=== PATIENT | female | born 1960 | race Native Hawaiian/Other Pacific Islander ===

== ENCOUNTER 2016-09-03 10:43 | Outpatient (CLI) | payer OTHER ==
[2016-09-03 12:30] LABS: BASOPHILS # (AUTO) 0.1 10^3/uL (0.0-0.1); BASOPHILS % (AUTO) 1.2 %; EOSINOPHILS # (AUTO) 0.2 10^3/uL (0.0-0.7); EOSINOPHILS % (AUTO) 4.2 %; HCT - HEMATOCRIT 44.3 % (37.0-47.0); HGB - HEMOGLOBIN 14.8 g/dL (12.0-16.0); LYMPHOCYTES # (AUTO) 1.8 10^3/uL (1.5-3.5); LYMPHOCYTES % (AUTO) 34.3 %; MEAN CORPUSCULAR HEMOGLOBIN 31.5 pg (27.0-31.0); MEAN CORPUSCULAR HGB CONC 33.5 g/dL (32.0-36.0); MEAN CORPUSCULAR VOLUME 93.9 fL (81.0-99.0); MONOCYTES # (AUTO) 0.4 10^3/uL (0.0-1.0); MONOCYTES % (AUTO) 7.4 %; NEUTROPHILS # (AUTO) 2.8 10^3/uL (1.5-6.6); NEUTROPHILS % (AUTO) 52.9 %; NUCLEATED RED BLOOD CELLS AUTO 0.1 /100WBC; RED BLOOD COUNT 4.71 10^6/uL (4.20-5.40); RED CELL DISTRIBUTION WIDTH 13.7 % (12.0-15.0); UNCORRECTED WHITE BLOOD COUNT 5.3 x10^3/uL; WHITE BLOOD COUNT 5.3 x10^3/uL (4.8-10.8)
[2016-09-03 12:48] LABS: ALBUMIN/GLOBULIN RATIO 1.6 (1.0-2.2); BILIRUBIN,TOTAL 0.6 mg/dL (0.2-1.0); BUN - BLOOD UREA NITROGEN 10 mg/dL (6-20); CARBON DIOXIDE - CO2 26 mmol/L (21-32); CHLORIDE 103 mmol/L (101-111); CHOL/HDL RATIO 3.8 (<4.4); CHOLESTEROL 182 mg/dL; CREATININE 0.9 mg/dL (0.4-1.0); GFR - MDRD 65 (>89); GLUCOSE 84 mg/dL (70-100); HDL CHOLESTEROL 48 mg/dL; LDL/HDL RATIO 2.1 (<4.4); SODIUM 138 mmol/L (135-145); TOTAL PROTEIN 7.3 g/dL (6.7-8.2); TRIGLYCERIDES 162 mg/dL; VLDL CHOLESTEROL 32 mg/dL
== END 2016-09-03 10:44 | disposition home or self-care (01) ==
LOC: LAB.R 10:43
PROVIDERS: ATTEND Nurse Practitioner Primary Care
DX: E78.2 Mixed hyperlipidemia (principal); E03.9 Hypothyroidism, unspecified; I10 Essential (primary) hypertension
CPT/HCPCS: 80053; 80061; 84443; 85025

== ENCOUNTER 2016-09-05 14:57 | Outpatient (CLI) | payer OTHER ==
--- NOTE | 2016-09-05 17:00 | XRAY Report ---
TWO VIEW CHEST: 09/05/2016 CLINICAL INDICATION: Rales right middle lobe, cough, malaise. FINDINGS: Frontal and lateral views of the chest demonstrate a normal cardiac silhouette. The lungs are clear. No effusion or pneumothorax is present. IMPRESSION: NORMAL CHEST. JOB #: [id number] EXT JOB #:[id number]
== END 2016-09-05 14:58 | disposition home or self-care (01) ==
LOC: DI 14:57
PROVIDERS: ATTEND Nurse Practitioner Primary Care
DX: R09.89 Other specified symptoms and signs involving the circulatory and respiratory systems (principal)
CPT/HCPCS: 71020

== ENCOUNTER 2016-09-26 12:43 | Outpatient (CLI) | payer OTHER ==
--- NOTE | 2016-10-08 09:26 | Mammography Report ---
DIGITAL BILATERAL SCREENING MAMMOGRAM: 09/26/2016 CLINICAL HISTORY: A 56-year-old female in for routine screening mammogram. The patient has a family h istory of breast cancer. Her maternal aunt had breast cancer in her 60s. The patient had a benign lef t breast biopsy in 2009. COMPARISON: 12/22/2013. Only a single oblique lateral view of the right breast is available from 2012 . We will contact the patient and find out if there are any additional examinations for comparison. I f they are received, an addendum will be dictated on to the present study. TECHNIQUE: Craniocaudad and oblique lateral views of each breast were obtained with Par8o full fiel d digital mammography. FINDINGS: The breast parenchyma consists almost entirely of fat. A small surgical clip is seen in the 3 o'clock position of the left breast related to an old minimall y invasive benign breast biopsy. No significant clusters of calcification are seen. No masses are noted. IMPRESSION: THE BREASTS APPEAR RADIOGRAPHICALLY BENIGN. BIRADS CATEGORY 1-NEGATIVE. RECOMMENDATION: ANNUAL BILATERAL SCREENING MAMMOGRAPHY. STANDARD QUALIFYING STATEMENTS 1. This examination was reviewed with the aid of Computer-Aided Detection (CAD). 2. A negative or benign imaging report should not delay biopsy if clinically suspicious findings are present. Consider surgical consultation if warranted. More than 5% of cancers are not identified by i chantelle. 3. Dense breasts may obscure an underlying neoplasm. JOB #: [id number] EXT JOB #:[id number]
== END 2016-09-26 12:44 | disposition home or self-care (01) ==
LOC: DI 12:43
PROVIDERS: ATTEND Nurse Practitioner Primary Care
DX: Z12.31 Encounter for screening mammogram for malignant neoplasm of breast (principal); Z80.3 Family history of malignant neoplasm of breast
CPT/HCPCS: 77067

== ENCOUNTER 2016-11-20 10:25 | Outpatient (CLI) | payer OTHER | END 2016-11-20 10:26 | disposition home or self-care (01) | LOC: LAB.R 10:25 | PROVIDERS: ATTEND Nurse Practitioner Primary Care | DX: E03.9 Hypothyroidism, unspecified (principal) | CPT/HCPCS: 84443 ==

== ENCOUNTER 2017-02-12 10:49 | Outpatient (CLI) | payer OTHER | END 2017-02-12 10:50 | disposition home or self-care (01) | LOC: LAB.R 10:49 | PROVIDERS: ATTEND Nurse Practitioner Primary Care | DX: E03.9 Hypothyroidism, unspecified (principal); Z79.899 Other long term (current) drug therapy | CPT/HCPCS: 84443 ==

== ENCOUNTER 2017-04-11 10:12 | Day surgery (SDC) | payer OTHER ==
[2017-04-11] MEDS ORDERED: LACTATED RINGERS 1,000 ML IV ONE (11:27)
--- NOTE | 2017-04-11 11:38 | HISTORY & PHYSICAL EXAMINATION ---
HPI - History of Present Illness HPI Comment/Other: Patient is here for colonoscopy for routine screening Current Meds: [facility] MELATONIN 5 MG ORAL TABLET (MELATONIN) ALEVE 220 MG ORAL CAPSULE (NAPROXEN SODIUM) MAXALT 10 MG ORAL TABLET (RIZATRIPTAN BENZOATE) Take one tablet by mouth at onset of headache, may repeat every 2 hours, maximum dosage 3 tabs/30mg in 24 hours LISINOPRIL 20 MG ORAL TABLET (LISINOPRIL) Take one tablet by mouth daily CITALOPRAM HYDROBROMIDE 40 MG ORAL TABLET (CITALOPRAM HYDROBROMIDE) Take one tablet by mouth daily LEVOTHYROXINE SODIUM 125 MCG ORAL TABLET (LEVOTHYROXINE SODIUM) Take one tablet by mouth daily CLONIDINE HCL 0.1 MG ORAL TABLET (CLONIDINE HCL) Take one tablet by mouth bedtime PRAVACHOL 20 MG ORAL TABLET (PRAVASTATIN SODIUM) Take one tablet by mouth at bedtime Past Medical History: Reviewed history and no changes required: Heart Murmur High Blood Pressure High Cholestrol Anemia Thyroid Problems Family History Summary: Reviewed history and no changes required: 02/27/2017 Social History: Reviewed history and no changes required: Risk Factors: Smoked Tobacco Use: Never smoker Drug use: no Alcohol use: yes Drinks per day: <1 Exercise: no Problems were reviewed with the patient during this visit. Medications were reviewed with the patient during this visit. Allergies were reviewed with the patient during this visit. No known allergies. Physical Exam General: well developed, well nourished, in no acute distress Lungs: clear bilaterally to A & P Heart: regular rate and rhythm, S1, S2 without murmurs, rubs, gallops, or clicks Abdomen: bowel sounds positive; abdomen soft and non-tender without masses, organomegaly, or hernias noted Pulses: pulses normal in all 4 extremities Extremities: no clubbing, cyanosis, edema, or deformity noted with normal full range of motion of all joints Cervical Nodes: no significant adenopathy Psych: alert and cooperative; normal mood and affect; normal attention span and concentration Impression & Recommendations: Problem # 1: screening for colon cancer will proceed with colonoscopy PMH/PSH - Past Medical History Cardiovascular: positive: Hypertension, High cholesterol, Murmur Respiratory: positive: Pneumonia Endocrine/Autoimmune: positive: HyPOthyroidism GI: positive: GERD : positive: None HEENT: positive: Chronic vision loss Psych: positive: None Musculoskeletal: positive: Osteoarthritis Derm: positive: None MRSA Hx?: No Meds/Allgy - Home Medications Home Medications: Ambulatory Orders Medication Instructions Recorded Confirmed Citalopram [CeleXA] 10 mg PO ONCE 04/10/17 04/11/17 Levothyroxine [Synthroid] 112 mcg PO QDAC 04/10/17 04/11/17 Lisinopril [Zestril] 20 mg PO DAILY 04/10/17 04/10/17 Pravastatin Sodium 20 mg PO DAILY 04/10/17 04/11/17 cloNIDine [Catapres] 0.1 mg PO ONCE 04/10/17 04/10/17 - Allergies Allergies/Adverse Reactions: Allergies Allergy/AdvReac Type Severity Reaction Status Date / Time No Known Drug Allergies Allergy Verified 04/10/17 13:55 Exam - Vital Signs Vital Signs: Vital Signs x48h Temp Pulse Resp BP Pulse Ox 04/11/17 10:28 36.2 C L 72 16 126/83 H 100
[2017-04-11] MEDS ORDERED: fentaNYL 100 MCG/2 ML VIAL IVP ONE (12:02)
[2017-04-11] MEDS ORDERED: MIDAZOLAM 2 MG/2 ML VIAL IVP ONE (12:02)
[2017-04-11 13:07] VITALS: BP 112/84
== END 2017-04-11 10:13 | disposition home or self-care (01) ==
LOC: SDS 10:12
PROVIDERS: ATTEND Surgery
PROC: 0DJD8ZZ Inspection of Lower Intestinal Tract, Via Natural or Artificial Opening Endoscopic (ICD-10-PCS; principal; 2017-04-11 12:00)
DX: Z12.11 Encounter for screening for malignant neoplasm of colon (principal); K57.30 Diverticulosis of large intestine without perforation or abscess without bleeding; I10 Essential (primary) hypertension; E78.5 Hyperlipidemia, unspecified; E03.9 Hypothyroidism, unspecified
CPT/HCPCS: 45378; J7120

== ENCOUNTER 2017-09-10 08:32 | Outpatient (CLI) | payer OTHER ==
[2017-09-10 09:17] LABS: EOSINOPHILS # (AUTO) 0.1 10^3/uL (0.0-0.7); EOSINOPHILS % (AUTO) 2.6 %; HGB - HEMOGLOBIN 13.8 g/dL (12.0-16.0); LYMPHOCYTES # (AUTO) 1.2 10^3/uL (1.5-3.5); LYMPHOCYTES % (AUTO) 28.2 %; MEAN CORPUSCULAR HEMOGLOBIN 31.5 pg (27.0-31.0); MEAN CORPUSCULAR HGB CONC 33.3 g/dL (32.0-36.0); MEAN CORPUSCULAR VOLUME 94.6 fL (81.0-99.0); MEAN PLATELET VOLUME 9.5 fL (7.9-10.8); MONOCYTES # (AUTO) 0.4 10^3/uL (0.0-1.0); MONOCYTES % (AUTO) 9.4 %; NEUTROPHILS # (AUTO) 2.6 10^3/uL (1.5-6.6); NEUTROPHILS % (AUTO) 58.8 %; PLT - PLATELET COUNT 230 10^3/uL (130-450); RED CELL DISTRIBUTION WIDTH 12.7 % (12.0-15.0); WHITE BLOOD COUNT 4.4 x10^3/uL (4.8-10.8)
[2017-09-10 09:31] LABS: HB2 TOTAL 15.3 g/dL; HEMOGLOBIN A1C 0.47 g/dL
[2017-09-10 09:36] LABS: ALBUMIN 4.3 g/dL (3.2-5.5); ALBUMIN/GLOBULIN RATIO 1.4 (1.0-2.2); ALKALINE PHOSPHATASE 56 IU/L (42-121); ALT ALANINE AMINOTRANSFERASE 19 IU/L (10-60); AST ASPARTATE AMINOTRANSFERASE 18 IU/L (10-42); BILIRUBIN,TOTAL 0.9 mg/dL (0.2-1.0); BUN - BLOOD UREA NITROGEN 10 mg/dL (6-20); CALCIUM 9.2 mg/dL (8.5-10.3); CARBON DIOXIDE - CO2 25 mmol/L (21-32); CHLORIDE 104 mmol/L (101-111); CHOL/HDL RATIO 2.8 (<4.4); CHOLESTEROL 139 mg/dL; CREATININE 0.8 mg/dL (0.4-1.0); GFR - MDRD 74 (>89); GLUCOSE 92 mg/dL (70-100); HDL CHOLESTEROL 49 mg/dL; LDL CHOLESTEROL,CALCULATED 74 mg/dL; LDL/HDL RATIO 1.5 (<4.4); SODIUM 135 mmol/L (135-145); TOTAL PROTEIN 7.3 g/dL (6.7-8.2); VLDL CHOLESTEROL 16 mg/dL
[2017-09-11 13:30] LABS: HEPATITIS C ANTIBODY NON-REACTIVE (NON-REACTIVE)
== END 2017-09-10 08:33 | disposition home or self-care (01) ==
LOC: LAB 08:32
PROVIDERS: ATTEND Nurse Practitioner Primary Care
DX: E10.9 Type 1 diabetes mellitus without complications (principal); I10 Essential (primary) hypertension; E03.9 Hypothyroidism, unspecified; Z79.899 Other long term (current) drug therapy; Z13.818 Encounter for screening for other digestive system disorders
CPT/HCPCS: 36415; 80053; 80061; 83036; 83721; 84443; 85025; 86803

== ENCOUNTER 2017-09-20 12:58 | Outpatient (CLI) | payer OTHER ==
--- NOTE | 2017-09-23 08:11 | DEXA Report ---
Procedure Date: 09/20/2017 Accession Number: [id number] / [id number] Procedure: DEX - Dexa Spine and/or Hip CPT Code: FULL RESULT: EXAM: Dexa Spine and/or Hip DATE: 09/20/2017 1:43 PM CLINICAL HISTORY: DCREENING FOR OSTEOPOROSIS TECHNIQUE: Dual energy x-ray absorptiometry (DXA) was performed on a Silk System. Regions measured are the AP Spine, femoral neck, and if needed forearm. COMPARISON: None. In accordance with the International Society for Clinical Densitometry (ISCD) guidelines, data from previous exams may be reanalyzed using current recommendations and techniques. This is done to allow a more accurate basis for comparison with the current study. FINDINGS: The data for the lumbar spine is as follows: BMD (g/cm/cm) T-SCORE Z-SCORE REGION L1 1.043 -0.7 0.5 L2 1.178 -0.2 1.1 L3 1.211 0.1 1.4 L4 1.070 -1.1 0.2 TOTAL 1.121 -0.5 0.8 NOTE: All evaluable vertebrae are used for classification The data for the hip is as follows: BMD (g/cm/cm) T-SCORE Z-SCORE REGION Neck 0.771 -1.9 -0.6 TOTAL 0.794 -1.7 -0.7 NOTE: The femoral neck or total proximal femur, whichever is lowest, is used for classification. IMPRESSION: THE WHO CLASSIFICATION BASED ON THE INTERNATIONAL REFERENCE STANDARD IS OSTEOPENIA. THE FRACTURE RISK IS INCREASED. RECOMMENDATION: Patients with diagnosis of osteoporosis or osteopenia should have regular bone mineral density assessment. For those eligible for Medicare, routine testing is allowed once every 2 years. Testing frequency can be increased for patients who have rapidly progressing disease or for those who are receiving medical therapy to restore bone mass. COMMENT: World Health Organization (WHO) definitions for osteoporosis and osteopenia: NORMAL BMD: T-score at -1.0 or higher, fracture risk is low OSTEOPENIA BMD: T-score between -1.0 and -2.5, fracture risk is increased. OSTEOPOROSIS BMD: T-score at -2.5 or lower, fracture risk is high. National Osteoporosis Foundation recommends: 1. Obtain adequate dietary calcium (at least 1200 mg per day) and vitamin D (400-800 international units per day). 2. Participate, as appropriate, in regular weightbearing and muscle-strengthening exercise. 3. Avoid tobacco use and reduce alcohol and caffeine intake. 4. For more detailed information see the website at www.NOF.org.
== END 2017-09-20 12:59 | disposition home or self-care (01) ==
LOC: DI 12:58
PROVIDERS: ATTEND Nurse Practitioner Primary Care
DX: Z13.820 Encounter for screening for osteoporosis (principal); M85.88 Other specified disorders of bone density and structure, other site; Z78.0 Asymptomatic menopausal state
CPT/HCPCS: 77080

== ENCOUNTER 2017-09-27 12:13 | Outpatient (CLI) | payer OTHER ==
--- NOTE | 2017-09-27 12:56 | XRAY Report ---
Procedure Date: 09/27/2017 Accession Number: [id number] / [id number] Procedure: XR - Knee Standing BILAT CPT Code: FULL RESULT: EXAM: Knee Standing BILAT DATE: 09/27/2017 12:48 PM CLINICAL HISTORY: BONE DEFORMITY,COMMON PERONEAL NERVE COMPRESSION,R COMPARISON: None. TECHNIQUE: 2 views each. FINDINGS: RIGHT KNEE: Bones: Normal. No fractures or bone lesions. Joints: Normal. No effusion. No subluxations. Soft Tissues: Normal. No soft tissue swelling. LEFT KNEE: Bones: Normal. No fractures or bone lesions. Joints: Normal. No effusion. No subluxations. Soft Tissues: Normal. No soft tissue swelling. IMPRESSION: Normal bilateral knee radiography. RAD[facility]
== END 2017-09-27 12:14 | disposition home or self-care (01) ==
LOC: DI 12:13
PROVIDERS: ATTEND Nurse Practitioner Primary Care
DX: M95.9 Acquired deformity of musculoskeletal system, unspecified (principal); G57.31 Lesion of lateral popliteal nerve, right lower limb
CPT/HCPCS: 73565

== ENCOUNTER 2017-12-04 12:12 | Outpatient (CLI) | payer OTHER | END 2017-12-04 12:13 | disposition home or self-care (01) | LOC: LAB 12:12 | PROVIDERS: ATTEND Nurse Practitioner Primary Care | DX: Z79.899 Other long term (current) drug therapy (principal); E03.9 Hypothyroidism, unspecified | CPT/HCPCS: 36415; 84443 ==

== ENCOUNTER 2018-02-11 15:24 | Outpatient (CLI) | payer OTHER | END 2018-02-11 15:25 | disposition home or self-care (01) | LOC: LAB 15:24 | PROVIDERS: ATTEND Nurse Practitioner Primary Care | DX: Z79.899 Other long term (current) drug therapy (principal); E03.9 Hypothyroidism, unspecified | CPT/HCPCS: 36415; 84443 ==

== ENCOUNTER 2018-10-20 15:04 | Outpatient (CLI) | payer OTHER | END 2018-10-20 15:05 | disposition critical access hospital (66) | LOC: EMS 15:04 | PROVIDERS: ATTEND Surgery | DX: R42 Dizziness and giddiness (principal); R61 Generalized hyperhidrosis; R53.1 Weakness; R53.83 Other fatigue | CPT/HCPCS: A0425; A0427 ==

== ENCOUNTER 2018-10-20 15:17 | Inpatient (IN) | payer OTHER ==
[2018-10-20] MEDS ORDERED: SODIUM CHLORIDE 0.9% 1,000 ML IV ONE (15:25)
--- NOTE | 2018-10-20 15:28 | ED Physician Documentation ---
PD HPI SYNCOPE - Stated complaint Stated Complaint: WEAKNESS - History obtained from History obtained from: Patient, Family, EMS - History of Present Illness Timing - onset: Today (58-year-old woman with history of hypertension and chronic migraines presents with a syncopal episode today. She is been constipated for the last few days but that is kind of a intermittent recurrent problem for her. She was sitting on the toilet and passed out or nearly passed out without injury. EMS was summoned and found her to have a blood pressure of 60/30 or so with a blood sugar of 140. On arrival she is more alert with better color. Still quite sweaty. On arrival she has received about 500 mL of normal saline IV. She denies pedal edema or calf pain. No heart or lung problems. Her says she did this once before but did not seek medical attention. Only new medication is Topamax which she started about a month ago at a low dose for migraine prophylaxis.) Review of Systems Ten Systems: 10 systems reviewed and negative Constitutional: reports: Fatigue, Sweats. denies: Fever, Chills Cardiac: denies: Chest pain / pressure, Palpitations Respiratory: reports: Dyspnea. denies: Cough GI: reports: Constipation. denies: Abdominal Pain, Nausea, Vomiting, Diarrhea, Hematemesis, Bloody / black stool PD PAST MEDICAL HISTORY - Past Medical History Cardiovascular: Hypertension, High cholesterol, Murmur Respiratory: Pneumonia Endocrine/Autoimmune: HyPOthyroidism GI: GERD : None HEENT: Chronic vision loss Psych: None Musculoskeletal: Osteoarthritis Derm: None - Present Medications Home Medications: Ambulatory Orders Medication Instructions Recorded Confirmed Citalopram [CeleXA] 10 mg PO ONCE 04/10/17 10/20/18 Levothyroxine [Synthroid] 112 mcg PO QDAC 04/10/17 10/20/18 Lisinopril [Zestril] 20 mg PO DAILY 04/10/17 10/20/18 Pravastatin Sodium 20 mg PO DAILY 04/10/17 10/20/18 cloNIDine [Catapres] 0.1 mg PO ONCE 04/10/17 10/20/18 Topiramate 25 mg PO DAILY 10/20/18 10/20/18 - Allergies Allergies/Adverse Reactions: Allergies Allergy/AdvReac Type Severity Reaction Status Date / Time No Known Drug Allergies Allergy Verified 04/10/17 13:55 PD ED PE NORMAL - Vitals Vital signs reviewed: Yes - General General: Alert and oriented X 3 (Slightly slow to answer questions, diaphoretic) - HEENT HEENT: PERRL, EOMI - Neck Neck: Supple, no meningeal sign, No bony TTP - Cardiac Cardiac: RRR, No murmur - Respiratory Respiratory: No respiratory distress, Clear bilaterally - Abdomen Abdomen: Normal bowel sounds, Soft, Non tender - Back Back: No CVA TTP, No spinal TTP - Derm Derm: Other (sweaty) - Extremities Extremities: No edema, No calf tenderness / cord - Neuro Neuro: Alert and oriented X 3, Normal speech - Psych Psych: Normal mood, Normal affect Results - Vitals Vitals: Vital Signs - 24 hr 10/20/18 10/20/18 10/20/18 15:23 15:30 17:03 Temperature 34.6 C L 35.3 C L Heart Rate 73 68 87 Respiratory 16 18 12 Rate Blood Pressure 78/64 L 91/70 89/66 L O2 Saturation 98 99 98 Oxygen O2 Source Room air - EKG (time done) 1527 Rate: Rate (enter#) (74) Rhythm: NSR [place]: Normal Intervals: Normal IA QRS: Normal Ischemia: Normal ST segments Computer interpretation: Agree with computer - Labs Labs: Laboratory Tests 10/20/18 10/20/18 10/20/18 15:51 15:51 15:51 WBC 16.5 H RBC 4.92 Hgb 11.9 L Hct 39.6 MCV 80.5 L MCH 24.2 L MCHC 30.1 L RDW 20.3 H Plt Count 405 MPV 10.2 Neut # (Auto) 13.3 H Lymph # (Auto) 2.1 [place] # (Auto) 0.7 Eos # (Auto) 0.2 Baso # (Auto) 0.1 Absolute Nucleated RBC 0.00 Nucleated RBC % 0.0 Manual Slide Review Indicated Platelet Estimate NORMAL (130-450,000) Platelet Morphology NORMAL APPEARANCE RBC Morph Micro Appear 2+ POIKILOCYTOSIS Sodium 136 Potassium 3.9 Chloride 111 Carbon Dioxide 16 L Anion Gap 9.0 BUN 17 Creatinine 1.4 H Estimated GFR (MDRD) 38 L Glucose 110 H Lactic Acid 1.2 Calcium 8.2 L Total Bilirubin 0.4 AST 16 ALT 16 Alkaline Phosphatase 40 L Total Protein 6.5 L Albumin 3.7 Globulin 2.8 Albumin/Globulin Ratio 1.3 Lipase 41 TSH Free T4 Thyroxine (T4) Urine Color Urine Clarity Urine pH Ur Specific [place] Urine Protein Urine Glucose (UA) Urine Ketones Urine Occult Blood Urine Nitrite Urine Bilirubin Urine Urobilinogen Ur Leukocyte Esterase Urine RBC Urine WBC Ur Squamous Epith Cells Urine Bacteria Urine Casts Ur Microscopic Review Urine Culture Comments Urine Opiates Screen Ur Oxycodone Screen Urine Methadone Screen Ur Propoxyphene Screen Ur Barbiturates Screen Ur Tricyclics Screen Ur Phencyclidine Scrn Ur Amphetamine Screen U Methamphetamines Scrn U Benzodiazepines Scrn Urine Cocaine Screen U Cannabinoids Screen Ethyl Alcohol 5.0 10/20/18 10/20/18 15:51 16:00 WBC RBC Hgb Hct MCV MCH MCHC RDW Plt Count MPV Neut # (Auto) Lymph # (Auto) [place] # (Auto) Eos # (Auto) Baso # (Auto) Absolute Nucleated RBC Nucleated RBC % Manual Slide Review Platelet Estimate Platelet Morphology RBC Morph Micro Appear Sodium Potassium Chloride Carbon Dioxide Anion Gap BUN Creatinine Estimated GFR (MDRD) Glucose Lactic Acid Calcium Total Bilirubin AST ALT Alkaline Phosphatase Total Protein Albumin Globulin Albumin/Globulin Ratio Lipase TSH 35.79 H Free T4 0.93 Thyroxine (T4) 5.74 L Urine Color DARK YELLOW Urine Clarity CLOUDY Urine pH 5.0 Ur Specific [place] 1.025 Urine Protein 100 H Urine Glucose (UA) 100 H Urine Ketones 15 H Urine Occult Blood NEGATIVE Urine Nitrite POSITIVE H Urine Bilirubin NEGATIVE Urine Urobilinogen 1 (NORMAL) Ur Leukocyte Esterase TRACE H Urine RBC None Seen Urine WBC 6-10 H Ur Squamous Epith Cells FEW Squamous Urine Bacteria Moderate H Urine Casts 11-25 Hyaline Casts Ur Microscopic Review INDICATED Urine Culture Comments INDICATED Urine Opiates Screen NEGATIVE Ur Oxycodone Screen NEGATIVE Urine Methadone Screen NEGATIVE Ur Propoxyphene Screen NEGATIVE Ur Barbiturates Screen NEGATIVE Ur Tricyclics Screen POSITIVE H Ur Phencyclidine Scrn POSITIVE H Ur Amphetamine Screen NEGATIVE U Methamphetamines Scrn NEGATIVE U Benzodiazepines Scrn POSITIVE H Urine Cocaine Screen NEGATIVE U Cannabinoids Screen POSITIVE H Ethyl Alcohol - Rads (name of study) CT Angio chest Radiology: EMP read contemporaneously (negative) PD MEDICAL DECISION MAKING - ED course ED course: 58-year-old woman presents after syncopal episode at home, persistently hypotensive here. Found to have UTI with probable sepsis, white count of 16 but lactate reassuring. Her blood pressure did improve with the administration of IV fluids. She would not is administered Zosyn here. Of note she also had dyspnea, so a CTA was done to make sure there was no evidence of a pulmonary embolism, there was not. - Consults Consults: Request knowledge management consultant accept pt in transfer (Anthony Garcia, [id number]) - Critical Care Time(min): 40 Time Includes: Direct patient care, Review records, Reassess patient, Document care, Coordinate care, Medical consult, Family consult for tx dec Data interpretation: Labs, Pulse ox Procedures included in critical care time: Peripheral IV Procedures excluded from critical care time: EKG - Sepsis Event Current Stage of Sepsis: Severe sepsis Initial Hypotension: SBP less than 90 mmHg Possible source of Sepsis: Genitourinary Mental/Cognitive Status: Alert/Oriented X3, Normal for patient Capillary refill: Less than 2 seconds Peripheral Pulse Strength: 2+ Slightly Diminished Peripheral Pulse Location: Popliteal Bedside ultrasound performed: No Departure - Departure Disposition: 66 [facility] DC/Xfer Clinical Impression: UTI (urinary tract infection) Qualifiers: Urinary tract infection type: site unspecified Hematuria presence: without hematuria Qualified Code(s): N39.0 - Urinary tract infection, site not specified Sepsis Qualifiers: Sepsis type: sepsis due to unspecified organism Qualified Code(s): A41.9 - Sepsis, unspecified organism Dyspnea Qualifiers: Dyspnea type: shortness of breath Qualified Code(s): R06.02 - Shortness of breath Condition: Serious
[2018-10-20 16:01] LABS: BASOPHILS # (AUTO) 0.1 10^3/uL (0.0-0.1); BASOPHILS % (AUTO) 0.5 %; EOSINOPHILS # (AUTO) 0.2 10^3/uL (0.0-0.7); EOSINOPHILS % (AUTO) 1.2 %; HGB - HEMOGLOBIN 11.9 g/dL (12.0-16.0); LYMPHOCYTES # (AUTO) 2.1 10^3/uL (1.5-3.5); LYMPHOCYTES % (AUTO) 12.7 %; MEAN CORPUSCULAR HEMOGLOBIN 24.2 pg (27.0-31.0); MEAN CORPUSCULAR HGB CONC 30.1 g/dL (32.0-36.0); MEAN CORPUSCULAR VOLUME 80.5 fL (81.0-99.0); MEAN PLATELET VOLUME 10.2 fL (7.9-10.8); MONOCYTES # (AUTO) 0.7 10^3/uL (0.0-1.0); NEUTROPHILS # (AUTO) 13.3 10^3/uL (1.5-6.6); NEUTROPHILS % (AUTO) 80.9 %; PLT - PLATELET COUNT 405 10^3/uL (130-450); RED BLOOD COUNT 4.92 10^6/uL (4.20-5.40); RED CELL DISTRIBUTION WIDTH 20.3 % (12.0-15.0); WHITE BLOOD COUNT 16.5 x10^3/uL (4.8-10.8)
[2018-10-20 16:13] LABS: MUDS CUTOFF CONCENTRATIONS CUTOFF CONC BELOW:
[2018-10-20 16:14] LABS: ALBUMIN 3.7 g/dL (3.2-5.5); ALBUMIN/GLOBULIN RATIO 1.3 (1.0-2.2); BILIRUBIN,TOTAL 0.4 mg/dL (0.2-1.0); CALCIUM 8.2 mg/dL (8.5-10.3); CREATININE 1.4 mg/dL (0.4-1.0); TOTAL PROTEIN 6.5 g/dL (6.7-8.2)
[2018-10-20 16:16] LABS: GLUCOSE, URINE (UA) 100 mg/dL (NEGATIVE); KETONES,URINE (UA) 15 mg/dL (NEGATIVE); LEUKOCYTE ESTERASE, URINE TRACE (NEGATIVE); NITRITE,URINE POSITIVE (NEGATIVE); OCCULT BLOOD,URINE NEGATIVE (NEGATIVE); PROTEIN,URINE 100 mg/dL (NEGATIVE); UROBILINOGEN,URINE 1 (NORMAL) E.U./dL (NORMAL)
[2018-10-20] MEDS ORDERED: IOVERSOL 320 100 ML VIAL IVP ONE ×2 (16:16→17:03)
[2018-10-20 16:20] LABS: BILIRUBIN,URINE NEGATIVE (NEGATIVE); CLARITY,URINE CLOUDY (CLEAR); ICTOTEST,URINE NEGATIVE
[2018-10-20] MEDS ORDERED: PIPERACILLIN/TAZOBACTAM 3.375 GM in SODIUM CHLORIDE 0.9% MINIBAG 100 ML IV STA (16:25)
[2018-10-20] MEDS ORDERED: LACTATED RINGERS 1,769.01 ML IV STA (16:25)
[2018-10-20 16:35] LABS: T4 (THYROXINE) 5.74 ug/dL (6.09-12.23)
[2018-10-20 16:36] LABS: PLATELET ESTIMATE, MANUAL NORMAL (130-450,000) (NORMAL); PLATELET MORPHOLOGY NORMAL APPEARANCE (NORMAL)
[2018-10-20 16:37] LABS: COCAINE SCREEN URINE NEGATIVE (NEGATIVE)
[2018-10-20 16:38] LABS: AMPHETAMINE SCREEN,URINE NEGATIVE (NEGATIVE); BENZODIAZEPINES SCREEN, URINE POSITIVE (NEGATIVE); METHADONE SCREEN, URINE NEGATIVE (NEGATIVE); METHAMPHETAMINES SCREEN, URINE NEGATIVE (NEGATIVE); OPIATE SCREEN, URINE NEGATIVE (NEGATIVE); OXYCODONE SCREEN, URINE NEGATIVE (NEGATIVE); PROPOXYPHENE SCREEN, URINE NEGATIVE (NEGATIVE); TRICYCLIC ANTIDEPRESSANT,URINE POSITIVE (NEGATIVE)
[2018-10-20 16:38] LABS: THYROID STIMULATING HORMONE 35.79 uIU/mL (0.34-5.60)
[2018-10-20 16:41] LABS: BACTERIA,URINE Moderate /HPF (None Seen); CASTS, URINE 11-25 Hyaline Casts /LPF; RBC,URINE None Seen /HPF (0-5); SQUAMOUS EPITHELIAL CELL,UR FEW Squamous (<= Few)
[2018-10-20 16:41] LABS: FREE T4 (FREE THYROXINE) 0.93 ng/dL (0.58-1.64)
--- NOTE | 2018-10-20 17:35 | CT Report ---
Reason: hypotension, dyspnea, PE PROTOCOL Procedure Date: 10/20/2018 Accession Number: [id number] / [id number] Procedure: CT - ANGIO CHEST W/WO CPT Code: FULL RESULT: EXAM: CT ANGIOGRAM CHEST EXAM DATE: 10/20/2018 05:00 PM. CLINICAL HISTORY: Hypotension, dyspnea, PE PROTOCOL. COMPARISON: CHEST 2 VIEW PA/LAT 09/05/2016 3:14 PM. TECHNIQUE: Routine helical imaging was performed through the chest in the pulmonary arterial phase. IV Contrast: OPTI 320 80 mL. Reconstructions: Coronal 3-D MIP reconstructions.Sagittal and coronal. In accordance with CT protocol optimization, one or more of the following dose reduction techniques were utilized for this exam: automated exposure control, adjustment of mA and/or KV based on patient size, or use of iterative reconstructive technique. FINDINGS: Pulmonary Arteries: Diagnostic quality: Adequate through the segmental arteries. No evidence for acute pulmonary emboli. Lungs/Pleura: No consolidation, pleural effusion, or pneumothorax. Mediastinum: Heart size is normal. No pericardial effusion. No mediastinal lymphadenopathy. Thoracic Aorta: Normal in course and caliber. No evidence of aneurysm or dissection. Upper Abdomen: Unremarkable. Other: None. IMPRESSION: No evidence of acute pulmonary embolus. RAD[facility]
[2018-10-20] MEDS ORDERED: levoFLOXacin 500 MG/100 ML 500 MG/100 ML BAG IV ONE (17:46)
[2018-10-20] MEDS ORDERED: ONDANSETRON ODT 4 MG TABLET TL PRN (17:53)
[2018-10-20] MEDS ORDERED: ONDANSETRON 4 MG/2 ML VIAL IVP PRN (17:53)
[2018-10-20] MEDS ORDERED: cefTRIAXone 1 GM in SODIUM CHLORIDE 0.9% MINIBAG 100 ML IV STA (18:01)
[2018-10-20] MEDS: cefTRIAXone 1 GM in SODIUM CHLORIDE 0.9% MINIBAG 100 ML IV SCH (19:45)
--- NOTE | 2018-10-20 20:28 | HISTORY & PHYSICAL EXAMINATION ---
Chief Complaint - Chief Complaint Chief Complaint: Light headedness History of Present Illness - Admitted From Admitted From:: Home - History Obtained From Records Reviewed: Yes History obtained from: Patient, Family - History of Present Illness HPI Comment/Other: This is a 58 year old female with a past medical history significant for hypertension, hypothyroidism, and migraines who presents from home after her spouse found her on the floor in the bathroom. The patient reports she went to the bathroom to vomit this afternoon when she felt weak, dizzy, lightheaded, and diaphoretic. She decided to lay on the floor as it was cool and she felt warm. She denies passing out or syncope but reports that she felt like her vision was going dark. Her found her lying on the floor and called 911 as she was not feeling. He reports that this happened once a few years ago but that this seemed more severe. She did not require medical attention during the prior episode. The patient reports she had felt weaker over the last couple of days. Denies fevers, dysuria, urgency. Reports increased urinary frequency but that she had been drinking more water than usual up until a couple of days ago. She denies palpitations, chest pain, syncope prior this episode of feeling faint. Upon EMS arrival, she was found to be hypothermic with a temperature <35, hypotensive with systolics in the 70's with a blood glucose in the 140's. In the ER, she was administered IV fluids and underwent a CTA to rule out pulmonary embolism which was unremarkable. Her labs were significant for a leukocytosis and elevated creatinine. UA positive for pyuria with bacteria and positive nitrites. She was administered Levaquin and Medicine was consulted for admission. History - Past Medical History Cardiovascular: reports: Hypertension, High cholesterol, Murmur Respiratory: reports: Pneumonia Neuro: reports: None Endocrine/Autoimmune: reports: HyPOthyroidism GI: reports: GERD, Hemorrhoids INDEPENDENT CROP CONSULTANT: reports: None : reports: None HEENT: reports: Chronic vision loss Psych: reports: None Musculoskeletal: reports: Osteoarthritis Derm: reports: None MRSA Hx?: No - Past Surgical History General: reports: Other (Hemmorhoid surgery x3) - Family & Social History Family History: Mother: , Father: Alive and Well Family History Comment/Other: She reports no family history. Father is alive and well. Mother in her 70's. Living arrangement: At home Living Situation: With spouse/s.o., With family Social History Notes: She has lived in [place] with her and father for past three years. Self-employed and works from as an retail sales advisor. Denies smoking, drug use. Consumes alcohol once every two weeks. - Substance History Use: Uses substance without health or social issues: NONE - POLST Patient has POLST: No Meds/Allgy - Home Medications Home Medications: Ambulatory Orders Medication Instructions Recorded Confirmed Citalopram [CeleXA] 10 mg PO ONCE 04/10/17 10/20/18 Levothyroxine [Synthroid] 112 mcg PO QDAC 04/10/17 10/20/18 Lisinopril [Zestril] 20 mg PO DAILY 04/10/17 10/20/18 Pravastatin Sodium 20 mg PO DAILY 04/10/17 10/20/18 cloNIDine [Catapres] 0.1 mg PO ONCE 04/10/17 10/20/18 Topiramate 25 mg PO DAILY 10/20/18 10/20/18 - Allergies Allergies/Adverse Reactions: Allergies Allergy/AdvReac Type Severity Reaction Status Date / Time No Known Drug Allergies Allergy Verified 04/10/17 13:55 Review of Systems - Constitutional Constitutional: reports: Fatigue, Malaise, Weakness, Diaphoresis. denies: Fever, Chills - Cardiovascular Cariovascular: reports: Lightheadedness. denies: Irregular heart rate, Palpitations, Chest pain, Edema, Syncope - Respiratory Respiratory: reports: Cough. denies: SOB at rest, SOB with exertion - Gastrointestinal Gastrointestinal: reports: Abdominal pain, Constipation, Diarrhea, Rectal bleeding (From hemorrhoids). denies: Black stools, Nausea, Vomiting - Genitourinary Genitourinary: denies: Dysuria, Frequency, Urgency - Integumentary Integumentary: reports: Rash - Neurological Neurological: reports: General weakness, Headache, Dizziness. denies: Focal weakness - Endocrine Endocrine: reports: Polyuria - All Other Systems All Other Systems: reports: Reviewed and negative Prior Level of Functionality: Independent with ADL's Exam - Vital Signs Reviewed Vital Signs: Yes Vital Signs: Vital Signs x48h Temp Pulse Pulse Pulse Resp BP BP 10/20/18 20:00 77 18 107/92 H 10/20/18 19:30 79 20 119/83 H 10/20/18 19:21 36.4 C L 71 17 111/79 10/20/18 18:15 35.5 C L 76 16 94/47 L 10/20/18 17:45 35.8 C L 77 18 111/80 10/20/18 17:03 35.3 C L 87 12 89/66 L 10/20/18 15:30 68 18 91/70 10/20/18 15:23 34.6 C L 73 16 78/64 L Pulse Ox 10/20/18 20:00 100 10/20/18 19:30 100 10/20/18 19:21 100 10/20/18 18:15 99 10/20/18 17:45 100 10/20/18 17:03 98 10/20/18 15:30 99 10/20/18 15:23 98 - Physical Exam General Appearance: positive: No acute distress, Alert Eyes Bilateral: positive: Normal inspection ENT: positive: ENT inspection nml. negative: Dry mucous membranes Neck: positive: Nml inspection Respiratory: positive: No respiratory distress, Breath sounds nml. negative: Wheezes, Rales, Rhonchi Cardiovascular: positive: Regular rate & rhythm, No murmur. negative: Tachycardia, Bradycardia Abdomen: positive: Nml bowel sounds, No distention, Tenderness (Mild tenderness to palpation). negative: Guarding, Rebound Skin: positive: Color nml, No rash, Warm, Dry Extremities: positive: Full ROM, No pedal edema. negative: Pedal edema Neurologic/Psychiatric: positive: Oriented x3, Motor nml. negative: Disoriented to person, Disoriented to place, Disoriented to time, Slurred/abnml speech Sepsis Event Note (H) - Evaluation Current Stage of Sepsis: Severe sepsis Possible source of Sepsis: positive: Genitourinary Sepsis Associated Organ Dysfunction: Acute kidney injury - Sepsis Criteria Sepsis Criteria: WBC count greater than 12,000 or less than 4000, SADDLE LINING STITCHER: altered consciousness (unrelated to primary neuro pathology), SBP less than 90 mmHg, Renal: urine output less than 0.5ml/kg/hr for 2 hours or creatinine gr Conclusion/Plan - Problem List (1) Severe sepsis with acute organ dysfunction Conclusion/Plan: She has severe sepsis which appears to be secondary to a UTI. Presented with hypotension, hypothermic, leukocytosis, presyncope, and acute kidney injury. UA reveals pyuria with bacteria and positive nitrites. CTA of the chest negative for infiltrate. Lactic acid normal. - Ceftriaxone to cover for gram negatives - LR for IV hydration - Follow up urine and blood cultures (2) UTI (urinary tract infection) Conclusion/Plan: Suspect that this is the cause of her sepsis as there is no other obvious source. UA with pyuria, bacteria and positive nitrites. - Ceftriaxone IV - Follow up urine culture Qualifiers: Urinary tract infection type: site unspecified Hematuria presence: without hematuria Qualified Code(s): N39.0 - Urinary tract infection, site not specified (3) Pre-syncope Conclusion/Plan: It does not appear that she truly had a syncopal episode as she can recall all of the events leading up to her lying on the floor. This appears to be more consistent with pre-syncope which I suspect is likely secondary to the hypotension rather than a cardiac event. Her EKG does reveal sinus rhythm with old Q waves in II, III, AVF. - IV hydration with LR - Trend troponins - If troponins are elevated, will check echocardiogram (4) Acute kidney injury Conclusion/Plan: She has non-oliguric acute kidney injury which I suspect is pre-renal in nature. Creatinine elevated at 1.4 with a baseline of 0.8. - IV hydration with LR - Hold Lisinopril - Monitor renal function and urine output (5) Hypertension Conclusion/Plan: She is on Lisinopril and takes Clonidine for hot flashes. Presented hypotensive with sytolics in the 70's which has improved with IV hydration. - Continue IV hydration - Hold home antihypertensives, restart when blood pressure stabilitizes (6) Hypothyroidism Conclusion/Plan: She is on Synthroid at home. TSH elevated at 35.79 with a normal T4. - Increase Synthroid to 125 from 112 - Repeat TSH in 6 weeks (7) Migraines Conclusion/Plan: Controlled with Topomax. - Resume Topomax - Lab Results Lab results reviewed: Yes Fish Bones: 10/20/18 15:51 10/20/18 15:51 - Diagnostic Imaging Results Diagnostic Imaging Results: positive: Final report reviewed - EKG Results EKG Interpreted Independently: Yes EKG Comparison: No prior EKG EKG Findings: Sinus rhythm with Q waves in II, II, and AVF. No ST segment changes. Core Measures - Anticipated LOS I expect patient to be DC'd or transferred within 96 hours.: Yes - Issues Hospital Issues and Management Plan: Sepsis with hypotension, TONO believed to be secondary to UTI. Requires IV Abx and fluids - DVT/VTE - Prophylaxis VTE/DVT Device ordered at admit?: Yes VTE/DVT Prophylaxis med ordered at admit?: Yes
[2018-10-20 21:53] LABS: TROPONIN I < 0.04 ng/mL (<0.49)
[2018-10-20] MEDS: LACTATED RINGERS 1,000 ML IV SCH (22:30)
[2018-10-21] MEDS: SODIUM CHLORIDE FLUSH 0.9% 10 ML SYRINGE IVP SCH ×3 (02:22→17:05)
[2018-10-21] MEDS: oxyCODONE 5 MG TABLET PO PRN (02:36)
[2018-10-21 04:57] LABS: BASOPHILS % (AUTO) 0.3 %; EOSINOPHILS # (AUTO) 0.1 10^3/uL (0.0-0.7); EOSINOPHILS % (AUTO) 0.5 %; HGB - HEMOGLOBIN 8.3 g/dL (12.0-16.0); LYMPHOCYTES # (AUTO) 1.9 10^3/uL (1.5-3.5); MEAN CORPUSCULAR HEMOGLOBIN 23.9 pg (27.0-31.0); MEAN CORPUSCULAR HGB CONC 30.2 g/dL (32.0-36.0); MEAN PLATELET VOLUME 10.1 fL (7.9-10.8); MONOCYTES # (AUTO) 0.7 10^3/uL (0.0-1.0); MONOCYTES % (AUTO) 6.4 %; NEUTROPHILS # (AUTO) 8.6 10^3/uL (1.5-6.6); NEUTROPHILS % (AUTO) 75.5 %; PLT - PLATELET COUNT 275 10^3/uL (130-450); RED BLOOD COUNT 3.48 10^6/uL (4.20-5.40); RED CELL DISTRIBUTION WIDTH 19.6 % (12.0-15.0); WHITE BLOOD COUNT 11.4 x10^3/uL (4.8-10.8)
[2018-10-21 05:13] LABS: CALCIUM 7.8 mg/dL (8.5-10.3); CREATININE 1.1 mg/dL (0.4-1.0); MAGNESIUM 2.1 mg/dL (1.7-2.8); PHOSPHORUS 2.6 mg/dL (2.5-4.6)
[2018-10-21] MEDS ORDERED: LEVOTHYROXINE 125 MCG TABLET PO SCH (07:00)
[2018-10-21 07:36] LABS: % IRON SATURATION 9 % (20-50); IRON 29 ug/dL (28-170); TOTAL IRON BINDING CAPACITY 308 ug/dL (250-450); TRANSFERRIN 220 mg/dL (192-382)
[2018-10-21] MEDS: LACTATED RINGERS 1,000 ML IV SCH ×2 (08:31→18:45)
[2018-10-21] MEDS: cefTRIAXone 1 GM in SODIUM CHLORIDE 0.9% MINIBAG 100 ML IV SCH (08:31)
--- NOTE | 2018-10-21 08:33 | PROVIDER PROGRESS NOTE ---
Assessment/Plan - Problem List (1) Severe sepsis with acute organ dysfunction Assessment/Plan: BP and mental status improved. The source appears to be her UTI. Will transfer out of ICU today. (2) UTI (urinary tract infection) Qualifiers: Urinary tract infection type: site unspecified Hematuria presence: without hematuria Qualified Code(s): N39.0 - Urinary tract infection, site not specified Assessment/Plan: She was given Levo in ER then started on iv Rocephin as an inpatient. Awaiting urine and blood culture results. Follow CBC daily. If no bacteremia, will plan 2 days of iv antibiotics, then transition to po antibiotics for 5 more days. (3) Pre-syncope Assessment/Plan: Low BP was documented at the scene which would explain her near-syncope. This may have been from sepsis, dehydration, alcohol use or iv drug use. (4) Positive urine drug screen Assessment/Plan: The Pharmacist was able to spend a long time with her and after a repeat visit, she did admit to the Phrmacist that she was on Alprazolam and also Flexeril. The Alpraz would explain a (+) Benzo fingding on drug screen, The Flexeril could make the drug screen (+) for PCP and Tricyclics (this was reviewed with our Pharmacist). There was also marijuana and alcohol seen. (5) Acute kidney injury Assessment/Plan: Improving BUN/creat with iv hydration. Monitor BMP daily. (6) Hypertension Assessment/Plan: Her BP meds will be restarted today, as BP has risen into HTN range. (7) Hypothyroidism Assessment/Plan: The lab findings show inadequate thyroid replacement. The admitting MD had incorrect information: he undrstood that she was on 112 mcg daily, but the Pharmacist confirmed the dose: 100 mcg 5 times a week. Will adjust the increase of dose to 112 mcg daily, not 125 mcg daily. (8) Migraines Assessment/Plan: She had a headache this a.m. an wanted her Topamax. Our Pharmacist was able to ascertain her correct current (higher) dose, which was ordered. The patient and confirmed to me that she was on an escalating dose over the past 6-8 weeks. (9) Diarrhea Assessment/Plan: She had this the morning of dmission (yesterday). No further complaints. (10) Iron deficiency anemia Assessment/Plan: She has early signs of low iron stores. Since she has needed crystalloids for replacement, her Hgb appears low. Will add Iron replacement, monitor CBC daily. (11) Abnormal EKG Assessment/Plan: A troponin was WNL, indicating no acute FL. She will need further testing for CAD as an outpatient, unless she has active angina while here. - Current Meds Current Meds: Current Medications Generic Name Dose Route Start Last Admin Trade Name Freq PRN Reason Stop Dose Admin Ceftriaxone Sodium 1 gm/ 100 mls @ 200 mls/hr 10/20/18 19:00 10/20/18 20:15 Sodium Chloride IV Infused DAILY PETER Infusion Lactated Ringer's 1,000 mls @ 100 mls/hr 10/20/18 22:00 10/20/18 22:30 Lr IV 100 mls/hr .Q10H PETER Administration Levothyroxine Sodium 125 mcg 10/21/18 07:00 10/21/18 06:52 Synthroid PO 125 mcg QDAC PETER Administration Oxycodone HCl 5 mg 10/20/18 17:53 10/21/18 02:36 Roxicodone PO 5 mg Q4HR PRN Administration Pain 5 to 7 Sodium Chloride 10 ml 10/21/18 01:00 10/21/18 02:22 Normal Saline Flush 0.9% IVP Not Given 0100,0900,1700 PETER - Lab Result Fish Bone Diagrams: 10/21/18 04:52 10/21/18 04:52 - Additional Planning My Orders: My Active Orders 10/21/18 09:00 Citalopram [CeleXA] 10 mg PO DAILY Ferrous Gluconate [Fergon] 324 mg PO DAILYWM Lisinopril [Zestril] 20 mg PO DAILY Pravastatin Sodium [Pravastatin Sodium] 20 mg PO DAILY Topiramate [Topamax] 25 mg PO DAILY cloNIDine [Catapres] 0.1 mg PO DAILY Subjective - Subjective Patient Reports: Feeling Better Nursing Reports: Headache, Other (Wants room dark due to headache) Objective Vital Signs: Vital Signs - 24 hr 10/20/18 10/20/18 10/20/18 15:23 15:30 17:03 Temperature 34.6 C L 35.3 C L Heart Rate 73 68 87 Heart Rate [ Brachial] Heart Rate [ Monitoring electrodes] Respiratory 16 18 12 Rate Blood Pressure 78/64 L 91/70 89/66 L Blood Pressure [Right Brachial artery] O2 Saturation 98 99 98 10/20/18 10/20/18 10/20/18 17:45 18:15 19:06 Temperature 35.8 C L 35.5 C L Heart Rate 77 76 Heart Rate [ Brachial] Heart Rate [ Monitoring electrodes] Respiratory 18 16 Rate Blood Pressure 111/80 94/47 L 120/80 Blood Pressure [Right Brachial artery] O2 Saturation 100 99 10/20/18 10/20/18 10/20/18 19:11 19:16 19:17 Temperature Heart Rate 75 Heart Rate [ Brachial] Heart Rate [ Monitoring electrodes] Respiratory 23 Rate Blood Pressure 111/79 74/57 L Blood Pressure [Right Brachial artery] O2 Saturation 10/20/18 10/20/18 10/20/18 19:20 19:21 19:25 Temperature 36.4 C L Heart Rate 75 76 Heart Rate [ 71 Brachial] Heart Rate [ Monitoring electrodes] Respiratory 18 17 30 H Rate Blood Pressure Blood Pressure 111/79 [Right Brachial artery] O2 Saturation 100 10/20/18 10/20/18 10/20/18 19:30 19:32 19:33 Temperature Heart Rate 73 77 73 Heart Rate [ Brachial] Heart Rate [ 79 Monitoring electrodes] Respiratory 16 27 H 13 Rate Blood Pressure 80/59 L Blood Pressure 119/83 H [Right Brachial artery] O2 Saturation 100 10/20/18 10/20/18 10/20/18 19:35 19:40 19:45 Temperature 36.0 C L Heart Rate 72 72 75 Heart Rate [ Brachial] Heart Rate [ Monitoring electrodes] Respiratory 11 L 24 18 Rate Blood Pressure Blood Pressure [Right Brachial artery] O2 Saturation 100 10/20/18 10/20/18 10/20/18 19:46 19:47 19:50 Temperature Heart Rate 76 74 81 Heart Rate [ Brachial] Heart Rate [ Monitoring electrodes] Respiratory 16 19 33 H Rate Blood Pressure 115/88 H Blood Pressure [Right Brachial artery] O2 Saturation 10/20/18 10/20/18 10/20/18 19:52 19:53 19:55 Temperature Heart Rate 79 85 74 Heart Rate [ Brachial] Heart Rate [ Monitoring electrodes] Respiratory 19 15 15 Rate Blood Pressure 119/83 H Blood Pressure [Right Brachial artery] O2 Saturation 10/20/18 10/20/18 10/20/18 20:00 20:01 20:05 Temperature Heart Rate 74 77 77 Heart Rate [ Brachial] Heart Rate [ 77 Monitoring electrodes] Respiratory 15 17 20 Rate Blood Pressure 107/92 H Blood Pressure 107/92 H [Right Brachial artery] O2 Saturation 100 10/20/18 10/20/18 10/20/18 20:10 20:15 20:20 Temperature Heart Rate 74 77 76 Heart Rate [ Brachial] Heart Rate [ Monitoring electrodes] Respiratory 19 19 18 Rate Blood Pressure Blood Pressure [Right Brachial artery] O2 Saturation 10/20/18 10/20/18 10/20/18 20:25 20:30 20:31 Temperature 36.0 C L Heart Rate 78 79 80 Heart Rate [ Brachial] Heart Rate [ 78 Monitoring electrodes] Respiratory 15 14 14 Rate Blood Pressure 119/89 H Blood Pressure 107/92 H [Right Brachial artery] O2 Saturation 100 10/20/18 10/20/18 10/20/18 20:35 20:40 20:52 Temperature Heart Rate 79 70 89 Heart Rate [ Brachial] Heart Rate [ Monitoring electrodes] Respiratory 15 16 11 L Rate Blood Pressure Blood Pressure [Right Brachial artery] O2 Saturation 10/20/18 10/20/18 10/20/18 20:55 21:00 21:05 Temperature Heart Rate 78 76 71 Heart Rate [ Brachial] Heart Rate [ 73 Monitoring electrodes] Respiratory 21 22 13 Rate Blood Pressure Blood Pressure 134/75 H [Right Brachial artery] O2 Saturation 100 10/20/18 10/20/18 10/20/18 21:07 21:08 21:10 Temperature Heart Rate 72 70 71 Heart Rate [ Brachial] Heart Rate [ Monitoring electrodes] Respiratory 18 19 15 Rate Blood Pressure 134/75 H Blood Pressure [Right Brachial artery] O2 Saturation 10/20/18 10/20/18 10/20/18 21:15 21:16 21:20 Temperature Heart Rate 71 71 72 Heart Rate [ Brachial] Heart Rate [ Monitoring electrodes] Respiratory 17 16 16 Rate Blood Pressure 128/87 H Blood Pressure [Right Brachial artery] O2 Saturation 10/20/18 10/20/18 10/20/18 21:25 21:30 22:00 Temperature Heart Rate 74 70 Heart Rate [ Brachial] Heart Rate [ 70 Monitoring electrodes] Respiratory 20 20 16 Rate Blood Pressure Blood Pressure 115/86 H [Right Brachial artery] O2 Saturation 100 10/20/18 10/21/18 10/21/18 23:00 00:00 01:00 Temperature 36.4 C L 36.6 C Heart Rate Heart Rate [ Brachial] Heart Rate [ 65 71 72 Monitoring electrodes] Respiratory 16 29 H 16 Rate Blood Pressure Blood Pressure 123/81 H 139/85 H 120/80 [Right Brachial artery] O2 Saturation 100 100 99 10/21/18 10/21/18 10/21/18 02:00 03:00 04:00 Temperature 36.7 C Heart Rate Heart Rate [ Brachial] Heart Rate [ 73 73 74 Monitoring electrodes] Respiratory 17 18 16 Rate Blood Pressure Blood Pressure 127/82 H 126/89 H 132/88 H [Right Brachial artery] O2 Saturation 100 100 98 10/21/18 10/21/18 10/21/18 05:00 06:00 07:00 Temperature Heart Rate Heart Rate [ Brachial] Heart Rate [ 75 72 71 Monitoring electrodes] Respiratory 16 14 17 Rate Blood Pressure Blood Pressure 124/90 H 125/82 H 131/83 H [Right Brachial artery] O2 Saturation 99 99 100 10/21/18 08:00 Temperature 36.9 C Heart Rate Heart Rate [ Brachial] Heart Rate [ 72 Monitoring electrodes] Respiratory 16 Rate Blood Pressure Blood Pressure 134/95 H [Right Brachial artery] O2 Saturation 100 Oxygen O2 Source Room air I&O (Last 24 Hrs): Intake and Output Totals x24h 10/19/18 10/20/18 10/21/18 23:59 23:59 23:59 Intake Total 1300 1769.01 Balance 1300 1769.01 General: Alert, Oriented x3 HEENT: Mucous membr. moist/pink Neck: Supple Neuro: Non Focal Cardiovascular: Regular rate Respiratory: No respiratory distress Abdomen: Soft Extremities: No edema - Results Results: Laboratory Results WBC 11.4 x10^3/uL (4.8-10.8) H 10/21/18 04:52 RBC 3.48 10^6/uL (4.20-5.40) L 10/21/18 04:52 Hgb 8.3 g/dL (12.0-16.0) L 10/21/18 04:52 Hct 27.5 % (37.0-47.0) L 10/21/18 04:52 MCV 79.0 fL (81.0-99.0) L 10/21/18 04:52 MCH 23.9 pg (27.0-31.0) L 10/21/18 04:52 MCHC 30.2 g/dL (32.0-36.0) L 10/21/18 04:52 RDW 19.6 % (12.0-15.0) H 10/21/18 04:52 Plt Count 275 10^3/uL (130-450) 10/21/18 04:52 MPV 10.1 fL (7.9-10.8) 10/21/18 04:52 Neut # (Auto) 8.6 10^3/uL (1.5-6.6) H 10/21/18 04:52 Lymph # (Auto) 1.9 10^3/uL (1.5-3.5) 10/21/18 04:52 [place] # (Auto) 0.7 10^3/uL (0.0-1.0) 10/21/18 04:52 Eos # (Auto) 0.1 10^3/uL (0.0-0.7) 10/21/18 04:52 Baso # (Auto) 0.0 10^3/uL (0.0-0.1) 10/21/18 04:52 Absolute Nucleated RBC 0.00 x10^3/uL 10/21/18 04:52 Nucleated RBC % 0.0 /100WBC 10/21/18 04:52 Manual Slide Review Indicated 10/20/18 15:51 Platelet Estimate NORMAL (130-450,000) (NORMAL) 10/20/18 15:51 Platelet Morphology NORMAL APPEARANCE (NORMAL) 10/20/18 15:51 RBC Morph Micro Appear 2+ ANISOCYTOSIS (NORMAL) 2+ POIKILOCYTOSIS (NORMAL) 10/20/18 15:51 RBC Morph Micro Appear 2+ ANISOCYTOSIS (NORMAL) 2+ POIKILOCYTOSIS (NORMAL) 10/20/18 15:51 Sodium 136 mmol/L (135-145) 10/21/18 04:52 Potassium 4.1 mmol/L (3.5-5.0) 10/21/18 04:52 Chloride 110 mmol/L (101-111) 10/21/18 04:52 Carbon Dioxide 17 mmol/L (21-32) L 10/21/18 04:52 Anion Gap 9.0 (6-13) 10/21/18 04:52 BUN 12 mg/dL (6-20) 10/21/18 04:52 Creatinine 1.1 mg/dL (0.4-1.0) H 10/21/18 04:52 Estimated GFR (MDRD) 51 (>89) L 10/21/18 04:52 Glucose 85 mg/dL (70-100) 10/21/18 04:52 Lactic Acid 1.4 mmol/L (0.5-2.2) 10/20/18 21:30 Calcium 7.8 mg/dL (8.5-10.3) L 10/21/18 04:52 Phosphorus 2.6 mg/dL (2.5-4.6) 10/21/18 04:52 Magnesium 2.1 mg/dL (1.7-2.8) 10/21/18 04:52 Iron 29 ug/dL (28-170) 10/21/18 06:40 TIBC 308 ug/dL (250-450) 10/21/18 06:40 % Saturation 9 % (20-50) L 10/21/18 06:40 Transferrin 220 mg/dL (192-382) 10/21/18 06:40 Ferritin 5.9 ng/mL (11.0-306.8) L 10/21/18 06:40 Total Bilirubin 0.4 mg/dL (0.2-1.0) 10/20/18 15:51 AST 16 IU/L (10-42) 10/20/18 15:51 ALT 16 IU/L (10-60) 10/20/18 15:51 Alkaline Phosphatase 40 IU/L (42-121) L 10/20/18 15:51 Troponin I < 0.04 ng/mL (<0.49) 10/20/18 21:30 Troponin I High Sens 9.6 pg/mL (2.3-14.8) 10/20/18 21:30 Total Protein 6.5 g/dL (6.7-8.2) L 10/20/18 15:51 Albumin 3.3 g/dL (3.2-5.5) 10/21/18 06:40 Globulin 2.8 g/dL (2.1-4.2) 10/20/18 15:51 Albumin/Globulin Ratio 1.3 (1.0-2.2) 10/20/18 15:51 Lipase 41 U/L (22-51) 10/20/18 15:51 TSH 35.79 uIU/mL (0.34-5.60) H 10/20/18 15:51 Free T4 0.93 ng/dL (0.58-1.64) 10/20/18 15:51 Thyroxine (T4) 5.74 ug/dL (6.09-12.23) L 10/20/18 15:51 Free T3 pg/mL 2.50 pg/mL (2.5-3.9) 10/20/18 15:51 Urine Color DARK YELLOW 10/20/18 16:00 Urine Clarity CLOUDY (CLEAR) 10/20/18 16:00 Urine pH 5.0 PH (5.0-7.5) 10/20/18 16:00 Ur Specific [place] 1.025 (1.002-1.030) 10/20/18 16:00 Urine Protein 100 mg/dL (NEGATIVE) H 10/20/18 16:00 Urine Glucose (UA) 100 mg/dL (NEGATIVE) H 10/20/18 16:00 Urine Ketones 15 mg/dL (NEGATIVE) H 10/20/18 16:00 Urine Occult Blood NEGATIVE (NEGATIVE) 10/20/18 16:00 Urine Nitrite POSITIVE (NEGATIVE) H 10/20/18 16:00 Urine Bilirubin NEGATIVE (NEGATIVE) 10/20/18 16:00 Urine Urobilinogen 1 (NORMAL) E.U./dL (NORMAL) 10/20/18 16:00 Ur Leukocyte Esterase TRACE (NEGATIVE) H 10/20/18 16:00 Urine RBC None Seen /HPF (0-5) 10/20/18 16:00 Urine WBC 6-10 /HPF (0-5) H 10/20/18 16:00 Ur Squamous Epith Cells FEW Squamous (<= Few) 10/20/18 16:00 Urine Bacteria Moderate /HPF (None Seen) H 10/20/18 16:00 Urine Casts 11-25 Hyaline Casts /LPF 10/20/18 16:00 Ur Microscopic Review INDICATED 10/20/18 16:00 Urine Culture Comments INDICATED 10/20/18 16:00 Nasal Screen MRSA (PCR) NEGATIVE (NEGATIVE) 10/20/18 19:25 Urine Opiates Screen NEGATIVE (NEGATIVE) 10/20/18 16:00 Ur Oxycodone Screen NEGATIVE (NEGATIVE) 10/20/18 16:00 Urine Methadone Screen NEGATIVE (NEGATIVE) 10/20/18 16:00 Ur Propoxyphene Screen NEGATIVE (NEGATIVE) 10/20/18 16:00 Ur Barbiturates Screen NEGATIVE (NEGATIVE) 10/20/18 16:00 Ur Tricyclics Screen POSITIVE (NEGATIVE) H 10/20/18 16:00 Ur Phencyclidine Scrn POSITIVE (NEGATIVE) H 10/20/18 16:00 Ur Amphetamine Screen NEGATIVE (NEGATIVE) 10/20/18 16:00 U Methamphetamines Scrn NEGATIVE (NEGATIVE) 10/20/18 16:00 U Benzodiazepines Scrn POSITIVE (NEGATIVE) H 10/20/18 16:00 Urine Cocaine Screen NEGATIVE (NEGATIVE) 10/20/18 16:00 U Cannabinoids Screen POSITIVE (NEGATIVE) H 10/20/18 16:00 Ethyl Alcohol 5.0 mg/dL 10/20/18 15:51 - Procedures Procedures: Procedures INSPECTION OF LOWER INTESTINAL TRACT, ENDO (04/11/17) Sepsis Event Note (H) - Evaluation Current Stage of Sepsis: Severe sepsis Possible source of Sepsis: positive: Genitourinary - Sepsis Criteria Sepsis Criteria: WBC count greater than 12,000 or less than 4000, DRUGLESS PHYSICIAN: altered consciousness (unrelated to primary neuro pathology), SBP less than 90 mmHg, Renal: urine output less than 0.5ml/kg/hr for 2 hours or creatinine gr ABX Reporting Has patient been on IV antibiotics over the past 48 hours?: Yes
[2018-10-21] MEDS: SODIUM CHLORIDE FLUSH 0.9% 10 ML SYRINGE IVP PRN ×2 (08:38→09:10)
[2018-10-21] MEDS ORDERED: PRAVASTATIN SODIUM 20 MG PO SCH (09:00)
[2018-10-21] MEDS ORDERED: cloNIDine 0.1 MG TABLET PO SCH (09:00)
[2018-10-21] MEDS ORDERED: TOPIRAMATE 25 MG TABLET PO SCH (09:00)
[2018-10-21] MEDS ORDERED: CITALOPRAM 10 MG TABLET PO SCH (09:00)
[2018-10-21] MEDS: ENOXAPARIN 40 MG/0.4 ML SYRINGE SUBQ SCH (09:42)
[2018-10-21] MEDS: ACETAMINOPHEN 325 MG TABLET PO PRN ×2 (09:47→20:07)
[2018-10-21] MEDS: POLYETHYLENE GLYCOL 3350 17 GM PACKET PO SCH (09:49)
[2018-10-21] MEDS: TOPIRAMATE 25 MG TABLET PO SCH ×2 (11:51→20:49)
[2018-10-21] MEDS: LISINOPRIL 20 MG TABLET PO SCH (11:52)
[2018-10-21] MEDS: FERROUS GLUCONATE 324 MG TABLET PO SCH (11:52)
[2018-10-21] MEDS: CITALOPRAM 10 MG TABLET PO SCH (16:21)
[2018-10-21] MEDS: CYANOCOBALAMIN 500 MCG TABLET PO SCH (20:49)
[2018-10-21] MEDS: PRAVASTATIN 10 MG TABLET PO SCH (20:50)
[2018-10-21] MEDS: NAPROXEN 250 MG TABLET PO SCH (20:50)
[2018-10-21] MEDS: cloNIDine 0.1 MG TABLET PO SCH (20:51)
[2018-10-22] MEDS: SODIUM CHLORIDE FLUSH 0.9% 10 ML SYRINGE IVP SCH ×3 (04:24→16:23)
[2018-10-22] MEDS: LACTATED RINGERS 1,000 ML IV SCH (04:25)
[2018-10-22 04:54] LABS: BASOPHILS % (AUTO) 0.7 %; EOSINOPHILS # (AUTO) 0.1 10^3/uL (0.0-0.7); EOSINOPHILS % (AUTO) 2.3 %; HGB - HEMOGLOBIN 7.7 g/dL (12.0-16.0); LYMPHOCYTES # (AUTO) 2.1 10^3/uL (1.5-3.5); LYMPHOCYTES % (AUTO) 37.1 %; MEAN CORPUSCULAR HEMOGLOBIN 24.1 pg (27.0-31.0); MEAN CORPUSCULAR HGB CONC 30.2 g/dL (32.0-36.0); MEAN CORPUSCULAR VOLUME 79.9 fL (81.0-99.0); MEAN PLATELET VOLUME 10.7 fL (7.9-10.8); MONOCYTES # (AUTO) 0.5 10^3/uL (0.0-1.0); MONOCYTES % (AUTO) 8.3 %; NEUTROPHILS # (AUTO) 2.9 10^3/uL (1.5-6.6); NEUTROPHILS % (AUTO) 51.2 %; PLT - PLATELET COUNT 261 10^3/uL (130-450); RED BLOOD COUNT 3.19 10^6/uL (4.20-5.40); RED CELL DISTRIBUTION WIDTH 19.9 % (12.0-15.0); WHITE BLOOD COUNT 5.6 x10^3/uL (4.8-10.8)
[2018-10-22 05:03] LABS: CALCIUM 8.5 mg/dL (8.5-10.3); CREATININE 0.9 mg/dL (0.4-1.0); PHOSPHORUS 2.8 mg/dL (2.5-4.6)
[2018-10-22] MEDS ORDERED: LEVOTHYROXINE 125 MCG TABLET PO SCH (07:00)
[2018-10-22] MEDS: TOPIRAMATE 25 MG TABLET PO SCH ×2 (07:42→20:34)
[2018-10-22] MEDS: LEVOTHYROXINE 112 MCG TABLET PO SCH (07:43)
--- NOTE | 2018-10-22 08:02 | PROVIDER PROGRESS NOTE ---
Assessment/Plan - Problem List (1) UTI (urinary tract infection) Qualifiers: Urinary tract infection type: site unspecified Hematuria presence: without hematuria Qualified Code(s): N39.0 - Urinary tract infection, site not specified Assessment/Plan: CT of abdomen/pelvis ordered for today, with contrast now that her kidney failure improved, to evaluate for anatomic defect, since she reported that 2 family members have a double ureter on one side and they get frequent UTIs. This showed no anatomic abnormality and no obstructions. Awaiting blood culture results. Urine culture grew polymicrobials, therefore was contaminant. Follow CBC daily. If no bacteremia, will plan to complete 2 days of iv antibiotics, then tra nsition to po antibiotics for 5 more days. (2) Hypotensive syncope Assessment/Plan: Her syncope correlated with hypotension documented at the scene. I suspect it was multifactorial : due to BP med use, marked anemia, infection and Benzo/Flexeril/marijuana/alcohol use. Her low BP corrected with iv fluids. Will transfer out of ICU, stop iv hydration and liberalize activity. (3) Iron deficiency anemia Assessment/Plan: She described hemorrhoidal bleeding (and 3 previous hemorrhoid surgeries were needed). She is severely anemic today, even with (+) fluid balance of 9 L since admission, and looks pale. B12 and Folate levels were adequate and Iron panel showed low Iron, a stool guiac was (+). Replacement oral Iron was also already started yesterday. Follow CBC daily. If Hgb <7, would transfuse PRBCs. She will need the GI evaluation for a colonoscopy and EGD to evaluate presumed GI blood loss anemia. (4) Positive urine drug screen Assessment/Plan: The Pharmacist was able to spend a long time with her and after a repeat visit, she did admit to the Phrmacist that she was on Alprazolam and also Flexeril. The Alprazolam would explain a (+) Benzo finding on drug screen, the Flexeril could make the drug screen (+) for PCP and Tricyclics (according our Pharmacist, Jayy ferreira). There was also marijuana and alcohol seen. (5) Hypertension Assessment/Plan: She needed to be restarted on her home BP meds, as BP margaret into hypertensive range yesterday. Will order orthostatic VS. (6) Hypothyroidism Assessment/Plan: The lab findings show inadequate thyroid replacement. The admitting MD had incorrect information: he understood that she was on 112 mcg daily, but the Pharmacist confirmed the dose yesterday, which was actually 100 mcg 5 times a week. I therefore adjusted the increase of dose to 112 mcg daily, not 125 mcg daily. (7) Migraines Assessment/Plan: She required her Topamax dosed yesterday and to be in a dark room. (8) Diarrhea Assessment/Plan: This was the symptom for the day preceding her syncope at home. She had stool incontinence in the ER, and reported some more today. Today she described many years of alternating constipation and diarrhea, but has never been seen by a Gastroenterology specialist. The abd/pelvis CT did not describe any olonic abnormality. Will need outpatient eval and management. (9) Abnormal EKG Assessment/Plan: A troponin was WNL yesterday, indicating no acute VA. She reported several weeks of intermittent TMJ pain (not jaw pain) for which she saw a dentist. She also gets recent L elbow pain and L hand numbness, but desc ribed frequent neck pain and was recently doing alot of painting. She will need further testing for CAD with an outpatient stress test, an no exertional activity until cardiac evaluation completed, was advised today, was at bedside. (10) Severe sepsis with acute organ dysfunction Assessment/Plan: Resolved (11) Acute kidney injury Assessment/Plan: Resolved - Current Meds Current Meds: Current Medications Generic Name Dose Route Start Last Admin Trade Name Freq PRN Reason Stop Dose Admin Acetaminophen 650 mg 10/20/18 18:41 10/21/18 20:07 Tylenol PO 650 mg Q4HR PRN Administration Pain 1 to 4 Citalopram Hydrobromide 40 mg 10/21/18 15:00 10/21/18 16:21 Celexa PO 40 mg DAILY PETER Administration Clonidine HCl 0.1 mg 10/21/18 21:00 10/21/18 20:51 Catapres PO 0.1 mg QPM PETER Administration Cyanocobalamin 1,000 mcg 10/21/18 21:00 10/21/18 20:49 Vitamin B-12 PO 1,000 mcg BID PETER Administration Enoxaparin Sodium 40 mg 10/21/18 09:00 10/21/18 09:42 Lovenox SUBQ 40 mg DAILY PETER Administration Ferrous Gluconate 324 mg 10/21/18 09:30 10/21/18 11:52 Fergon PO 324 mg DAILYWM PETER Administration Ceftriaxone Sodium 1 gm/ 100 mls @ 200 mls/hr 10/20/18 19:00 10/21/18 09:05 Sodium Chloride IV Infused DAILY PETER Infusion Levothyroxine Sodium 112 mcg 10/22/18 07:08 10/22/18 07:43 Synthroid PO 112 mcg QDAC PETER Administration Lisinopril 20 mg 10/21/18 09:30 10/21/18 11:52 Zestril PO 20 mg DAILY PETER Administration Naproxen 250 mg 10/21/18 21:00 10/21/18 20:50 Naprosyn PO 250 mg BID PETER Administration Oxycodone HCl 5 mg 10/20/18 17:53 10/21/18 02:36 Roxicodone PO 5 mg Q4HR PRN Administration Pain 5 to 7 Melatonin 10 Mg 1 each 10/21/18 21:00 10/22/18 04:24 PO Not Given QPM PETER Polyethylene Glycol 17 gm 10/21/18 09:00 10/21/18 09:49 Miralax PO Not Given DAILY PETER Pravastatin Sodium 20 mg 10/21/18 21:00 10/21/18 20:50 Pravachol PO 20 mg QPM PETER Administration Sodium Chloride 10 ml 10/20/18 17:53 10/21/18 09:10 Normal Saline Flush 0.9% IVP 10 ml PRN PRN Administration NEEDED PER PROVIDER ORDERS Sodium Chloride 10 ml 10/21/18 01:00 10/22/18 04:24 Normal Saline Flush 0.9% IVP Not Given 0100,0900,1700 PETER Topiramate 50 mg 10/21/18 11:30 10/22/18 07:42 Topamax PO 50 mg BID PETER Administration - Lab Result Fish Bone Diagrams: 10/22/18 04:25 10/22/18 04:25 - Additional Planning My Orders: My Active Orders 10/21/18 09:30 Ferrous Gluconate [Fergon] 324 mg PO DAILYWM Lisinopril [Zestril] 20 mg PO DAILY 10/21/18 11:30 Topiramate [Topamax] 50 mg PO BID 10/21/18 15:00 Citalopram [CeleXA] 40 mg PO DAILY 10/21/18 21:00 Cyanocobalamin [Vitamin B-12] 1,000 mcg PO BID Naproxen [Naprosyn] 250 mg PO BID Patient Own Med [Patient Own Medication] 1 each PO QPM Pravastatin [Pravachol] 20 mg PO QPM cloNIDine [Catapres] 0.1 mg PO QPM 10/22/18 Guiaic [OCCULT BLOOD IN PAT. SINGLE] [RAPID] Urgent 10/22/18 05:00 FOLATE [IAI] Routine IRON TIBC PANEL [CHEM] Routine VITAMIN B12 [IAI] Routine 10/22/18 07:08 Levothyroxine [Synthroid] 112 mcg PO QDAC 10/22/18 07:56 Transfer [Admit \ Transfer \ Status] [RC] .ONCE 10/22/18 08:00 ABDOMEN/PELVIS W [CT] Routine 10/22/18 09:00 Ascorbic Acid Chew [Vitamin C] 1,000 mg PO DAILY Cholecalciferol [Vitamin D3] 1,000 unit PO DAILY Docusate Sodium 100Mg Capsule [Colace 100Mg Capsule] 100 mg PO DAILY Multivitamin [Theragran] 1 tab PO DAILY Subjective - Subjective Patient Reports: Feeling Better, Fatigue, Other (Diarrhea still recurring) Objective Vital Signs: Vital Signs - 24 hr 10/21/18 10/21/18 10/21/18 09:00 10:00 11:00 Temperature Heart Rate [ Brachial] Heart Rate [ 99 88 84 Monitoring electrodes] Respiratory 16 16 26 H Rate Blood Pressure 143/93 H 124/83 H 114/75 [Right Brachial artery] O2 Saturation 100 100 100 10/21/18 10/21/18 10/21/18 12:00 13:00 14:00 Temperature 36.9 C Heart Rate [ Brachial] Heart Rate [ 83 87 72 Monitoring electrodes] Respiratory 17 16 16 Rate Blood Pressure 129/88 H 141/85 H 135/77 H [Right Brachial artery] O2 Saturation 100 100 100 10/21/18 10/21/18 10/21/18 15:00 16:00 19:58 Temperature 37.0 C 37.3 C Heart Rate [ Brachial] Heart Rate [ 70 81 70 Monitoring electrodes] Respiratory 16 15 16 Rate Blood Pressure 151/100 H 137/100 H 165/88 H [Right Brachial artery] O2 Saturation 100 99 100 10/22/18 10/22/18 01:02 07:47 Temperature 36.8 C 36.9 C Heart Rate [ 74 66 Brachial] Heart Rate [ Monitoring electrodes] Respiratory 15 16 Rate Blood Pressure 156/100 H 149/95 H [Right Brachial artery] O2 Saturation 99 100 Oxygen O2 Source Room air I&O (Last 24 Hrs): Intake and Output Totals x24h 10/20/18 10/21/18 10/22/18 23:59 23:59 23:59 Intake Total 1300 6039.01 1766.667 Balance 1300 6039.01 1766.667 General: Alert, Oriented x3 HEENT: Mucous membr. moist/pink, Other (Pale) Neuro: Non Focal Cardiovascular: Regular rate Respiratory: No respiratory distress Abdomen: Soft Extremities: No edema - Results Results: Laboratory Results WBC 5.6 x10^3/uL (4.8-10.8) 10/22/18 04:25 RBC 3.19 10^6/uL (4.20-5.40) L 10/22/18 04:25 Hgb 7.7 g/dL (12.0-16.0) L 10/22/18 04:25 Hct 25.5 % (37.0-47.0) L 10/22/18 04:25 MCV 79.9 fL (81.0-99.0) L 10/22/18 04:25 MCH 24.1 pg (27.0-31.0) L 10/22/18 04:25 MCHC 30.2 g/dL (32.0-36.0) L 10/22/18 04:25 RDW 19.9 % (12.0-15.0) H 10/22/18 04:25 Plt Count 261 10^3/uL (130-450) 10/22/18 04:25 MPV 10.7 fL (7.9-10.8) 10/22/18 04:25 Neut # (Auto) 2.9 10^3/uL (1.5-6.6) 10/22/18 04:25 Lymph # (Auto) 2.1 10^3/uL (1.5-3.5) 10/22/18 04:25 Pettis # (Auto) 0.5 10^3/uL (0.0-1.0) 10/22/18 04:25 Eos # (Auto) 0.1 10^3/uL (0.0-0.7) 10/22/18 04:25 Baso # (Auto) 0.0 10^3/uL (0.0-0.1) 10/22/18 04:25 Absolute Nucleated RBC 0.00 x10^3/uL 10/22/18 04:25 Nucleated RBC % 0.0 /100WBC 10/22/18 04:25 Manual Slide Review Indicated 10/20/18 15:51 Platelet Estimate NORMAL (130-450,000) (NORMAL) 10/20/18 15:51 Platelet Morphology NORMAL APPEARANCE (NORMAL) 10/20/18 15:51 RBC Morph Micro Appear 2+ ANISOCYTOSIS (NORMAL) 2+ POIKILOCYTOSIS (NORMAL) 10/20/18 15:51 RBC Morph Micro Appear 2+ ANISOCYTOSIS (NORMAL) 2+ POIKILOCYTOSIS (NORMAL) 10/20/18 15:51 Sodium 143 mmol/L (135-145) 10/22/18 04:25 Potassium 3.9 mmol/L (3.5-5.0) 10/22/18 04:25 Chloride 114 mmol/L (101-111) H 10/22/18 04:25 Carbon Dioxide 20 mmol/L (21-32) L 10/22/18 04:25 Anion Gap 9.0 (6-13) 10/22/18 04:25 BUN 9 mg/dL (6-20) 10/22/18 04:25 Creatinine 0.9 mg/dL (0.4-1.0) 10/22/18 04:25 Estimated GFR (MDRD) 64 (>89) L 10/22/18 04:25 Glucose 90 mg/dL (70-100) 10/22/18 04:25 Lactic Acid 1.4 mmol/L (0.5-2.2) 10/20/18 21:30 Calcium 8.5 mg/dL (8.5-10.3) 10/22/18 04:25 Phosphorus 2.8 mg/dL (2.5-4.6) 10/22/18 04:25 Magnesium 2.0 mg/dL (1.7-2.8) 10/22/18 04:25 Iron 29 ug/dL (28-170) 10/21/18 06:40 TIBC 308 ug/dL (250-450) 10/21/18 06:40 % Saturation 9 % (20-50) L 10/21/18 06:40 Transferrin 220 mg/dL (192-382) 10/21/18 06:40 Ferritin 5.9 ng/mL (11.0-306.8) L 10/21/18 06:40 Total Bilirubin 0.4 mg/dL (0.2-1.0) 10/20/18 15:51 AST 16 IU/L (10-42) 10/20/18 15:51 ALT 16 IU/L (10-60) 10/20/18 15:51 Alkaline Phosphatase 40 IU/L (42-121) L 10/20/18 15:51 Troponin I < 0.04 ng/mL (<0.49) 10/20/18 21:30 Troponin I High Sens 9.6 pg/mL (2.3-14.8) 10/20/18 21:30 Total Protein 6.5 g/dL (6.7-8.2) L 10/20/18 15:51 Albumin 3.3 g/dL (3.2-5.5) 10/21/18 06:40 Globulin 2.8 g/dL (2.1-4.2) 10/20/18 15:51 Albumin/Globulin Ratio 1.3 (1.0-2.2) 10/20/18 15:51 Lipase 41 U/L (22-51) 10/20/18 15:51 TSH 35.79 uIU/mL (0.34-5.60) H 10/20/18 15:51 Free T4 0.93 ng/dL (0.58-1.64) 10/20/18 15:51 Thyroxine (T4) 5.74 ug/dL (6.09-12.23) L 10/20/18 15:51 Free T3 pg/mL 2.50 pg/mL (2.5-3.9) 10/20/18 15:51 Urine Color DARK YELLOW 10/20/18 16:00 Urine Clarity CLOUDY (CLEAR) 10/20/18 16:00 Urine pH 5.0 PH (5.0-7.5) 10/20/18 16:00 Ur Specific [employer] 1.025 (1.002-1.030) 10/20/18 16:00 Urine Protein 100 mg/dL (NEGATIVE) H 10/20/18 16:00 Urine Glucose (UA) 100 mg/dL (NEGATIVE) H 10/20/18 16:00 Urine Ketones 15 mg/dL (NEGATIVE) H 10/20/18 16:00 Urine Occult Blood NEGATIVE (NEGATIVE) 10/20/18 16:00 Urine Nitrite POSITIVE (NEGATIVE) H 10/20/18 16:00 Urine Bilirubin NEGATIVE (NEGATIVE) 10/20/18 16:00 Urine Urobilinogen 1 (NORMAL) E.U./dL (NORMAL) 10/20/18 16:00 Ur Leukocyte Esterase TRACE (NEGATIVE) H 10/20/18 16:00 Urine RBC None Seen /HPF (0-5) 10/20/18 16:00 Urine WBC 6-10 /HPF (0-5) H 10/20/18 16:00 Ur Squamous Epith Cells FEW Squamous (<= Few) 10/20/18 16:00 Urine Bacteria Moderate /HPF (None Seen) H 10/20/18 16:00 Urine Casts 11-25 Hyaline Casts /LPF 10/20/18 16:00 Ur Microscopic Review INDICATED 10/20/18 16:00 Urine Culture Comments INDICATED 10/20/18 16:00 Nasal Screen MRSA (PCR) NEGATIVE (NEGATIVE) 10/20/18 19:25 Urine Opiates Screen NEGATIVE (NEGATIVE) 10/20/18 16:00 Ur Oxycodone Screen NEGATIVE (NEGATIVE) 10/20/18 16:00 Urine Methadone Screen NEGATIVE (NEGATIVE) 10/20/18 16:00 Ur Propoxyphene Screen NEGATIVE (NEGATIVE) 10/20/18 16:00 Ur Barbiturates Screen NEGATIVE (NEGATIVE) 10/20/18 16:00 Ur Tricyclics Screen POSITIVE (NEGATIVE) H 10/20/18 16:00 Ur Phencyclidine Scrn POSITIVE (NEGATIVE) H 10/20/18 16:00 Ur Amphetamine Screen NEGATIVE (NEGATIVE) 10/20/18 16:00 U Methamphetamines Scrn NEGATIVE (NEGATIVE) 10/20/18 16:00 U Benzodiazepines Scrn POSITIVE (NEGATIVE) H 10/20/18 16:00 Urine Cocaine Screen NEGATIVE (NEGATIVE) 10/20/18 16:00 U Cannabinoids Screen POSITIVE (NEGATIVE) H 10/20/18 16:00 Ethyl Alcohol 5.0 mg/dL 10/20/18 15:51 - Procedures Procedures: Procedures INSPECTION OF LOWER INTESTINAL TRACT, ENDO (04/11/17) Sepsis Event Note (H) - Evaluation Current Stage of Sepsis: Severe sepsis Possible source of Sepsis: positive: Genitourinary - Sepsis Criteria Sepsis Criteria: WBC count greater than 12,000 or less than 4000, THERMOSCREW OPERATOR: altered consciousness (unrelated to primary neuro pathology), SBP less than 90 mmHg, Renal: urine output less than 0.5ml/kg/hr for 2 hours or creatinine gr
[2018-10-22] MEDS: cefTRIAXone 1 GM in SODIUM CHLORIDE 0.9% MINIBAG 100 ML IV SCH (08:24)
[2018-10-22] MEDS ORDERED: IOVERSOL 320 100 ML VIAL IVP ONE ×2 (08:27→16:02)
[2018-10-22] MEDS: SODIUM CHLORIDE FLUSH 0.9% 10 ML SYRINGE IVP PRN ×2 (08:31→09:06)
[2018-10-22 08:43] LABS: % IRON SATURATION 5 % (20-50); IRON 18 ug/dL (28-170); TOTAL IRON BINDING CAPACITY 347 ug/dL (250-450); TRANSFERRIN 248 mg/dL (192-382)
[2018-10-22] MEDS ORDERED: IOVERSOL 320 50 ML VIAL ONE (08:47)
[2018-10-22] MEDS ORDERED: CITALOPRAM 10 MG TABLET PO SCH (09:00)
[2018-10-22] MEDS: ASCORBIC ACID CHEW 500 MG TABLET PO SCH (10:32)
[2018-10-22] MEDS: CHOLECALCIFEROL 1,000 UNIT TABLET PO SCH (10:32)
[2018-10-22] MEDS: CITALOPRAM 10 MG TABLET PO SCH (10:33)
[2018-10-22] MEDS: LISINOPRIL 20 MG TABLET PO SCH (10:35)
[2018-10-22] MEDS: CYANOCOBALAMIN 500 MCG TABLET PO SCH ×2 (10:35→20:33)
[2018-10-22] MEDS: MULTIVITAMIN TABLET PO SCH (10:36)
[2018-10-22] MEDS: FERROUS GLUCONATE 324 MG TABLET PO SCH (10:36)
[2018-10-22] MEDS: ENOXAPARIN 40 MG/0.4 ML SYRINGE SUBQ SCH (10:37)
[2018-10-22] MEDS: DOCUSATE SODIUM 100 MG CAPSULE PO SCH (10:40)
[2018-10-22] MEDS: NAPROXEN 250 MG TABLET PO SCH ×2 (10:40→20:33)
[2018-10-22] MEDS: POLYETHYLENE GLYCOL 3350 17 GM PACKET PO SCH (10:41)
--- NOTE | 2018-10-22 10:51 | CT Report ---
Reason: UTI, FH of double ureters on one side Procedure Date: 10/22/2018 Accession Number: [id number] / [id number] Procedure: CT - Abdomen/Pelvis W CPT Code: FULL RESULT: EXAM: CT ABDOMEN AND PELVIS EXAM DATE: 10/22/2018 10:14 AM. CLINICAL HISTORY: Urinary tract infection, family history of double ureters on one side. COMPARISONS: CHEST ANGIO 10/20/2018 4:55 PM. TECHNIQUE: Routine helical CT imaging was performed through the abdomen and pelvis. IV contrast: OPTI 320 100ML. Enteric contrast: Yes. Reconstructions: Coronal and sagittal. In accordance with CT protocol optimization, one or more of the following dose reduction techniques were utilized for this exam: automated exposure control, adjustment of mA and/or KV based on patient size, or use of iterative reconstructive technique. FINDINGS: Lung Bases: Bilateral dependent changes. Liver: Perivascular hypodense parenchyma with vessels geographically coursing through the finding which extends to the gallbladder fossa is most consistent with focal fatty infiltration. Gallbladder/Bile Ducts: Unremarkable. Spleen: Normal. Pancreas: Normal. Adrenal Glands: Normal. Kidneys: Normal collecting systems on both sides with no hydronephrosis. No striated nephrogram to suggest pyelonephritis by CT. No masses or hydronephrosis. Peritoneal Cavity/Bowel: There is diverticulosis. There is no bowel obstruction, free fluid or free air. There is no lymphadenopathy by size criteria. Pelvic Organs: Normal. The bladder and visualized pelvic organs are within normal limits. Vasculature: No aneurysms or other significant abnormality. Bones: No significant abnormality. Other: None. IMPRESSION: Normal renal collecting systems with no CT evidence of complication of urinary tract infection. RADIA
[2018-10-22] MEDS: ACETAMINOPHEN 325 MG TABLET PO PRN ×2 (12:31→16:33)
[2018-10-22] MEDS: oxyCODONE 5 MG TABLET PO PRN (13:36)
[2018-10-22] MEDS ORDERED: PSYLLIUM PACKET PO PRN (13:57)
[2018-10-22] MEDS ORDERED: LACTOBACILLUS RHAMNOSUS GG CAPSULE PO SCH (13:58)
[2018-10-22] MEDS ORDERED: SACCHAROMYCES BOULARDII 250 MG CAPSULE PO SCH (17:00)
[2018-10-22] MEDS: PRAVASTATIN 10 MG TABLET PO SCH (20:32)
[2018-10-22] MEDS: cloNIDine 0.1 MG TABLET PO SCH (20:34)
[2018-10-23] MEDS: SODIUM CHLORIDE FLUSH 0.9% 10 ML SYRINGE IVP SCH ×2 (00:08→09:03)
[2018-10-23 05:21] LABS: BASOPHILS # (AUTO) 0.1 10^3/uL (0.0-0.1); BASOPHILS % (AUTO) 1.1 %; EOSINOPHILS # (AUTO) 0.2 10^3/uL (0.0-0.7); EOSINOPHILS % (AUTO) 3.6 %; HGB - HEMOGLOBIN 8.3 g/dL (12.0-16.0); LYMPHOCYTES % (AUTO) 36.5 %; MEAN CORPUSCULAR HEMOGLOBIN 23.6 pg (27.0-31.0); MEAN CORPUSCULAR HGB CONC 29.2 g/dL (32.0-36.0); MEAN CORPUSCULAR VOLUME 80.7 fL (81.0-99.0); MEAN PLATELET VOLUME 10.3 fL (7.9-10.8); MONOCYTES # (AUTO) 0.4 10^3/uL (0.0-1.0); MONOCYTES % (AUTO) 7.7 %; NEUTROPHILS # (AUTO) 2.8 10^3/uL (1.5-6.6); NEUTROPHILS % (AUTO) 50.9 %; PLT - PLATELET COUNT 272 10^3/uL (130-450); RED BLOOD COUNT 3.52 10^6/uL (4.20-5.40); RED CELL DISTRIBUTION WIDTH 20.3 % (12.0-15.0); WHITE BLOOD COUNT 5.5 x10^3/uL (4.8-10.8)
[2018-10-23 05:26] LABS: CALCIUM 8.8 mg/dL (8.5-10.3); CREATININE 0.9 mg/dL (0.4-1.0)
[2018-10-23 06:16] LABS: PLATELET ESTIMATE, MANUAL NORMAL (130-450,000) (NORMAL)
[2018-10-23] MEDS: LEVOTHYROXINE 112 MCG TABLET PO SCH (06:42)
--- NOTE | 2018-10-23 08:02 | Discharge Plan ---
Discharge Plan Problem Reviewed?: Yes Disposition: Home, Self Care Condition: Stable Prescriptions: Ferrous Gluconate 240 mg PO DAILY #30 tablet Levothyroxine [Synthroid] 112 mcg PO QDAC #30 tablet Sulfamethox/Trimeth 800/160 [Bactrim Ds 800/160] 1 each PO BID #10 tablet Diet: Regular Activity Restrictions: Activity as Tolerated Shower Restrictions: No Driving Restrictions: No Instruction Topics: Iron tablets capsules extended-release tablets, Sulfamethoxazole Trimethoprim SMX-TMP tablets, Anemia, Urinary Tract Infecs Women Health Concerns: Admitted after fainting at home and a very low blood pressure was documented by the paramedics. This was likely due to several simultaneous factors: dehydration from diarrhea, an infection, being on BP meds, having a low thyroid level, taking possible sedatives and muscle relaxants, and using marijuana. The infection was treated and fluids were given iv. A significant iron deficiency anemia was also found. Your thyroid dose was found to be low. The EKG was found to be abnormal. Plan of Treatment: Finish the course of antibiotics. Note that the thyroid dose was increased. Do not take Advil for now, since it could be causing bleeding in GI tract. See PCP for a referral to a Sandblast Operator for evaluation of recurring diarr hea and blood in stools causing marked anemia. Also a referral is needed for a cardiac evaluation due to an abnormal EKG. Care Goals: Finish treatment of the urinary tract infection. Get outpatient evaluation of diarrhea, anemia and abnormal EKG. Assessment: The patient is agreeable with the plan. Additional Instructions or Follow Up instructions: Resume pre-hospital medications (except no Advil or aspirin products and note the new Synthroid dose and you only need 1 tablet a day of B12). Stay well hydrated, especially when you get diarrhea. No heavy exertion until after a stress test clears you. If you have any questions call your PCP and see your PCP in hospital follow-up. If you have new or worsening symptoms, come to the ER. No Smoking: If you smoke, Please STOP! Call for help. Follow-up with: Tamera Ibarra ARNP [Primary Care Provider] -
[2018-10-23 08:21] VITALS: BP 153/91
[2018-10-23] MEDS: CYANOCOBALAMIN 500 MCG TABLET PO SCH (08:55)
[2018-10-23] MEDS: TOPIRAMATE 25 MG TABLET PO SCH (08:56)
[2018-10-23] MEDS: FERROUS GLUCONATE 324 MG TABLET PO SCH (08:56)
[2018-10-23] MEDS: MULTIVITAMIN TABLET PO SCH (08:56)
[2018-10-23] MEDS: ASCORBIC ACID CHEW 500 MG TABLET PO SCH (08:57)
[2018-10-23] MEDS: LISINOPRIL 20 MG TABLET PO SCH (08:58)
[2018-10-23] MEDS: CHOLECALCIFEROL 1,000 UNIT TABLET PO SCH (08:58)
[2018-10-23] MEDS: NAPROXEN 250 MG TABLET PO SCH (08:58)
[2018-10-23] MEDS: CITALOPRAM 10 MG TABLET PO SCH (08:59)
[2018-10-23] MEDS: cefTRIAXone 1 GM in SODIUM CHLORIDE 0.9% MINIBAG 100 ML IV SCH (09:00)
[2018-10-23] MEDS: ENOXAPARIN 40 MG/0.4 ML SYRINGE SUBQ SCH (09:04)
[2018-10-23] MEDS: DOCUSATE SODIUM 100 MG CAPSULE PO SCH (09:05)
[2018-10-23] MEDS: POLYETHYLENE GLYCOL 3350 17 GM PACKET PO SCH (09:06)
--- NOTE | 2018-10-24 17:56 | DISCHARGE SUMMARY ---
Discharge Summary Admit Date: 10/20/18 Discharge Date: 10/23/18 Discharging Provider: Dr Chelo Boggs Primary Care Provider: Tamera Ibarra NP Condition at Discharge: Stable Discharge Disposition: 01 Home, Self Care - DIAGNOSES Admission Diagnoses: 1) Severe sepsis 2) Syncope 3) UTI 4) TONO Discharge Diagnoses with Status of Each Condition: See below - HPI History of Present Illness: From the admission H&P of Dr Currie: This is a 58 year old female with a past medical history significant for hypertension, hypothyroidism, and migraines who presents from home after her spouse found her on the floor in the bathroom. The patient reports she went to the bathroom to vomit this afternoon when she felt weak, dizzy, lightheaded, and diaphoretic. She decided to lay on the floor as it was cool and she felt warm. She denies passing out or syncope but reports that she felt like her vision was going dark. Her found her lying on the floor and called 911 as she was not feeling right. He reports that this happened once a few years ago but that this current one seemed more severe. She did not seek medical attention during the prior episode. The patient reports she had felt weaker over the last couple of days and had diarrhea that day. Denies fevers, dysuria, urgency. Reports increased urinary frequency but that she had been drinking more water than usual up until a couple of days ago. She denies palpitations, chest pain, syncope prior this episode of feeling faint. Upon EMS arrival, she was found to be hypothermic with a temperature <35, hypotensive with systolics in the 70's with a normal blood glucose in the 140's. In the ER, she was administered IV fluids and underwent a CTA to rule out pulmonary embolism which was unremarkable. Her labs were significant for a leukocytosis and elevated creatinine. UA positive for pyuria with bacteria and positive nitrites. Lactic Acid was normal at 1.2. She was admitted to the hospital into the ICU. - HOSPITAL COURSE Hospital Course: (1) UTI (urinary tract infection) The abnormal U/A findings were felt to be the cause of her infection and sepsis. She was put on empiric IV Ceftriaxone. Blood cultures remained negative. Urine cultures only grew polymicrobial organisms, therefore considered a contaminant. She was discharged home to complete several more days of antibiotics using Bactrim DS. CT of abdomen/pelvis was done with contrast when her kidney failure improved, to evaluate for anatomic defect, since she reported that 2 family members have a double ureter on one side and they get frequent UTIs. This showed no anatomic abnormality and no obstructions. (2) Hypotensive syncope Her syncope correlated with hypotension documented at the scene. There was evidence that it was multifactorial: due to BP med use, marked anemia, infection and Benzodiazepine/Flexeril/marijuana/alcohol use. Her low BP corrected with aggressive iv fluid administration and holding her antihypertensives for 2 days. By the third day, her antihypertensive meds had to be restarted. (3) Iron deficiency anemia After hydration, she was 9L pos in fluid balance and she was anemic on labs looked pale. B12 and Folate serum levels were adequate but an Iron panel showed low Iron, and a stool guiac test was (+). She then described hemorrhoidal bleeding (and 3 previous hemorrhoid surgeries were needed). She will need a GI evaluation for a colonoscopy and EGD to evaluate possible GI blood loss anemia. She was discharged with advice to stop using Advil (for migraines) or any aspirin products. She was started on oral Iron replacement and discharged with a new prescription for this. (4) Positive urine drug screen Her admission MUDS screen was pos for Benzodiazepines, PCP, Tricyclics, marijuana and alcohol. She initially denied using any such medications, then remembered that she has prescriptions for Alprazolam and also Flexeril, but could not remember when she last took them. And on the final day she admitted to using CBD oil for sleep. It was advised that she not take these medications that could add to lethargy and potential syncope, if she is dehydrated, like when she gets diarrhea. (5) Hypertension She needed to be restarted on her home BP meds, as BP margaret into hypertensive range (6) Hypothyroidism The lab findings show inadequate thyroid replacement with a TSH of 35.79. The admitting MD had incorrect information: he thought that she was on 112 mcg daily, but the Pharmacist confirmed the dose, which was actually 100 mcg 5 times a week. Her dose was therefore adjusted up to 112 mcg daily, not 125 mcg daily. (7) Migraines She required her Topamax doses and to be in a dark room. (8) Diarrhea This was the symptom for the day preceding her syncope at home. She had stool incontinence in the ER, and reported some more diarrhea here. She then described many years of alternating constipation and diarrhea, but has never been seen by a Gastroenterology specialist. The abd/pelvis CT did not describe any colonic abnormality. She will need the outpatient GI evaluation for this complaint as well. (9) Abnormal EKG Her admission EKG showed QS waves in V1-V2. A troponin was normal, indicating no acute IA. When asked further, she reported several weeks of intermittent TMJ pain (not jaw pain) for which she saw a dentist. She also gets recent L elbow pain and L hand numbness, but described frequent neck pain and was recently doing alot of painting and thought the arm symptoms were from that. She will need further testing for CAD with an outpatient stress test. She was advised no exertional activity until cardiac evaluation completed, was at bedside. (10) Severe sepsis with acute organ dysfunction She was lethargic and minimally communicative at presentation. She required ICU stay, Mayes for accurate I's and O's. She was hydrated with iv crystalloids and iv antibiotics were used for the UTI. By the second day, she was not hypotensive, was more alert and felt better. (11) Acute kidney injury Her admission BUN/creat of 17/1.4 improved daily with the aggressive hydration and recovered to normal BUN/creat by the second hospital day. - ALLERGIES Allergies/Adverse Reactions: Allergies Allergy/AdvReac Type Severity Reaction Status Date / Time pickeling spices Allergy Rash Uncoded 10/22/18 07:39 lactose AdvReac Severe Unknown Uncoded 10/21/18 07:43 - MEDICATIONS Home Medications: Ambulatory Orders Medication Instructions Recorded Confirmed Citalopram [CeleXA] 40 mg PO DAILY 04/10/17 10/21/18 Lisinopril [Zestril] 20 mg PO DAILY 04/10/17 10/21/18 Pravastatin Sodium 20 mg PO DAILY PM 04/10/17 10/21/18 cloNIDine [Catapres] 0.1 mg PO DAILY PM 04/10/17 10/21/18 Topiramate 50 mg PO BID 10/20/18 10/21/18 Ascorbic Acid [Vitamin C] 1,000 mg PO DAILY 10/21/18 10/21/18 Cetirizine [ZyrTEC] 10 mg PO DAILY PRN 10/21/18 10/21/18 Cholecalciferol (Vitamin D3) 1,000 units PO DAILY 10/21/18 10/21/18 [Vitamin D3] Cyanocobalamin (Vitamin B-12) 1,000 mcg PO BID 10/21/18 10/21/18 [Vitamin B-12] Cyclobenzaprine [Flexeril] 10 mg PO DAILY PM PRN 10/21/18 10/21/18 Docusate Sodium 100 mg PO DAILY 10/21/18 10/21/18 Melatonin 10 mg PO DAILY 10/21/18 10/21/18 Multivitamin [Multivitamins] 1 cap PO DAILY 10/21/18 10/21/18 hydrOXYzine pamoate [Hydroxyzine 25 mg PO DAILY PRN 10/21/18 10/21/18 Pamoate] Ferrous Gluconate 240 mg PO DAILY #30 tablet 10/23/18 Levothyroxine [Synthroid] 112 mcg PO QDAC #30 tablet 10/23/18 Sulfamethox/Trimeth 800/160 1 each PO BID #10 tablet 10/23/18 [Bactrim Ds 800/160] - PHYSICAL EXAM AT DISCHARGE General Appearance: positive: No acute distress, Alert Eyes Bilateral: positive: Normal inspection, Other (Pale) ENT: positive: Other (Pale lips, wearing dark glasses (to prevent a migraine attack)) Neck: positive: Nml inspection, No JVD Respiratory: positive: No respiratory distress, Breath sounds nml Cardiovascular: positive: Regular rate & rhythm, No murmur Abdomen: positive: Non-tender Extremities: positive: No pedal edema Neurologic/Psychiatric: positive: Oriented x3, Motor nml - LABS Result Diagrams: 10/23/18 05:00 10/23/18 05:00 - DIAGNOSTIC IMAGING Diagnostic Imaging Results: Final report reviewed - SEPSIS Sepsis Associated Organ Dysfunction: Yes Sepsis Criteria: WBC count greater than 12,000 or less than 4000, PLASTERER TENDER: altered consciousness (unrelated to primary neuro pathology), SBP less than 90 mmHg, Renal: urine output less than 0.5ml/kg/hr for 2 hours or creatinine gr - FOLLOW UP Follow Up: See PCP within 3-5 days, get referrals for a Gastroenterolgy appointment and a stress test ordered. I called her PCP Tamera Ibarra NP, on the day of discharge and gave a warm hand-off, detailing all the above. - TIME SPENT Time Spent in Discharge (Minutes): 60
== END 2018-10-23 11:08 | disposition home or self-care (01) | DRG 872 ==
LOC: EDUNIT# → EDBD → ED 15:17 → ICU 17:53 → MS2 10-22 13:20
PROVIDERS: ADMIT Specialist; ATTEND Internal Medicine
DX: A41.9 Sepsis, unspecified organism (principal); N39.0 Urinary tract infection, site not specified; N17.9 Acute kidney failure, unspecified; R65.20 Severe sepsis without septic shock; I10 Essential (primary) hypertension; I95.9 Hypotension, unspecified; R55 Syncope and collapse; D50.0 Iron deficiency anemia secondary to blood loss (chronic); E86.0 Dehydration; E03.9 Hypothyroidism, unspecified; G43.909 Migraine, unspecified, not intractable, without status migrainosus; R19.7 Diarrhea, unspecified; R78.0 Finding of alcohol in blood; R78.5 Finding of other psychotropic drug in blood; R78.4 Finding of other drugs of addictive potential in blood; R94.31 Abnormal electrocardiogram [ECG] [EKG]; E78.00 Pure hypercholesterolemia, unspecified; K21.9 Gastro-esophageal reflux disease without esophagitis; H54.7 Unspecified visual loss; M19.90 Unspecified osteoarthritis, unspecified site; Z87.19 Personal history of other diseases of the digestive system; Z87.01 Personal history of pneumonia (recurrent); Z79.899 Other long term (current) drug therapy
CPT/HCPCS: 36415; 71275; 74177; 80048; 80053; 80306; 80320; 81001; 82040; 82274; 82607; 82728; 82746; 83540; 83605; 83690; 83735; 84100; 84436; 84439; 84443; 84466; 84481; 84484; 85025; 87040; 87086; 87150; 93005; A9270; J1650; J7120; Q9967; 81003; 82272

== ENCOUNTER 2018-11-12 12:47 | Outpatient (CLI) | payer OTHER ==
[2018-11-12] MEDS ORDERED: REGADENOSON 0.4 MG/5 ML SYRINGE IVP ONE ×2 (14:10→15:57)
[2018-11-12] MEDS ORDERED: AMINOPHYLLINE 250 MG/10 ML VIAL ONE (14:11)
--- NOTE | 2018-11-12 17:41 | CARDIAC PROCEDURE NOTE ---
DATE OF SERVICE: 11/12/2018 Physician: Chelo Boggs MD, [facility] INDICATION: Abnormal EKG. CARDIAC RISK FACTORS: Postmenopausal status, hypertension, hyperlipidemia, family history of heart disease. DESCRIPTION OF PROCEDURE: After signing informed consent, patient underwent a Lexiscan pharmaceutical stress test with nuclear myocardial perfusion imaging. RESTING HEART RATE: 72. PEAK HEART RATE: 117. RESTING BLOOD PRESSURE: 156/94. PEAK BLOOD PRESSURE: 152/98. Lexiscan was infused per protocol. The patient developed brief nausea, shortness of breath and a headache. No chest pain. Oxygen saturation was 100% on room air. RESTING EKG: Normal sinus rhythm, within normal limits. EKG AT PEAK: Borderline abnormal ST depressions, which are horizontal, 0.5 mm in leads V3 through V6 develop. SUMMARY 1. Normal resting EKG. 2. Borderline abnormal changes for ischemia by EKG criteria during pharmaceutical stress testing. 3. Nuclear images reported separately. cc: IJLLIAN Landa ARNP TD: 11/12/2018 17:24 MTDD
--- NOTE | 2018-11-12 17:45 | Nuclear Medicine Report ---
Reason: ABN EKG Procedure Date: 11/12/2018 Accession Number: [id number] / [id number] Procedure: NM - Myocardial Perfusion STR/RST CPT Code: FULL RESULT: EXAM: SINGLE-ISOTOPE PHARMACOLOGICAL STRESS TEST WITH REGADENOSON. SINGLE-ISOTOPE AND TWO-DAY REST/STRESS MYOCARDIAL PERFUSION SCANS WITH TOMOGRAPHIC IMAGING, QUANTITATIVE ANALYSIS, WALL MOTION ANALYSIS AND CALCULATION OF EJECTION FRACTION. EXAM DATE: 11/12/2018 04:23 PM. CLINICAL HISTORY: ABN EKG. COMPARISON: None. TECHNIQUE: A pharmacological stress was performed with the infusion of 0.4 mg regadenoson per protocol. According to protocol, 10.1 mCi of Tc-99m sestamibi was injected for stress myocardial perfusion scan. Motion correction was applied when appropriate. The following day after the intravenous administration of 42.1 mCi of Tc-99m sestamibi, a rest myocardial perfusion scan was done with tomography. Motion correction was applied when appropriate. Gated tomographic images were obtained for wall motion analysis and computation of left ventricular ejection fraction. FINDINGS: Perfusion images: Left ventricular chamber size appears normal at rest and unchanged at stress. No convincing fixed perfusion deficits. Probable mild apical anterior wall breast attenuation artifact. No convincing reversible perfusion deficits. SSS 5, SRS 2, SDS 3. Gated images: No convincing focal wall motion abnormality. Calculated left ventricular EDV 37 mL, ESV 0 mL. The left ventricular ejection fraction is estimated at 99% (normal > 50%). IMPRESSION: 1. No convincing reversible perfusion deficits to indicate stress-induced ischemia. 2. No convincing fixed perfusion deficits. 3. Calculated left ventricular ejection fraction of 99% (normal > 50%). Please correlate findings with stress ECG tracings and procedure notes. [facility]
== END 2018-11-12 12:48 | disposition home or self-care (01) ==
LOC: DI 12:47
PROVIDERS: ATTEND Registered Nurse
DX: D64.9 Anemia, unspecified (principal); R94.31 Abnormal electrocardiogram [ECG] [EKG]; I10 Essential (primary) hypertension; E78.5 Hyperlipidemia, unspecified; Z82.49 Family history of ischemic heart disease and other diseases of the circulatory system; Z78.0 Asymptomatic menopausal state
CPT/HCPCS: 78452; 93017; A9500; J2785

== ENCOUNTER 2019-01-20 13:03 | Outpatient (CLI) | payer OTHER ==
[2019-01-20 13:24] LABS: HGB - HEMOGLOBIN 12.8 g/dL (12.0-16.0); MEAN CORPUSCULAR HEMOGLOBIN 28.3 pg (27.0-31.0); MEAN CORPUSCULAR HGB CONC 31.4 g/dL (32.0-36.0); MEAN CORPUSCULAR VOLUME 90.3 fL (81.0-99.0); MEAN PLATELET VOLUME 10.7 fL (7.9-10.8); RED BLOOD COUNT 4.52 10^6/uL (4.20-5.40); RED CELL DISTRIBUTION WIDTH 15.7 % (12.0-15.0); WHITE BLOOD COUNT 4.6 x10^3/uL (4.8-10.8)
[2019-01-20 13:53] LABS: T4 (THYROXINE) 9.79 ug/dL (6.09-12.23)
[2019-01-20 13:54] LABS: THYROID STIMULATING HORMONE < 0.08 uIU/mL (0.34-5.60)
[2019-01-20 14:01] LABS: FERRITIN 14.9 ng/mL (11.0-306.8)
[2019-01-20 14:17] LABS: FREE T3 3.37 pg/mL (2.5-3.9)
[2019-01-20 14:22] LABS: FOLLICLE STIMULATING HORMONE 116.46 mIU/mL
== END 2019-01-20 13:04 | disposition home or self-care (01) ==
LOC: LAB 13:03
DX: N95.8 Other specified menopausal and perimenopausal disorders (principal); E03.9 Hypothyroidism, unspecified; R68.82 Decreased libido
CPT/HCPCS: 36415; 82607; 82670; 82728; 82746; 83001; 84403; 84436; 84443; 84481; 85027; 86376